=== PATIENT | male | born 1980 | race Two or more races ===

== ENCOUNTER 2019-07-26 04:04 | Emergency (ER) | payer OTHER ==
[~2019-07-26] VITALS: Ht 177.8 cm; Wt 106.6 kg
[2019-07-26 04:17] VITALS: BP 176/127
[2019-07-26] MEDS ORDERED: cloNIDine HCL 0.1 MG TAB PO ONE (04:30)
== END 2019-07-26 04:44 | disposition home or self-care (01) ==
LOC: ER 04:09
DX: I10 Essential (primary) hypertension (principal); R51 Headache; Z76.0 Encounter for issue of repeat prescription

== ENCOUNTER 2024-08-17 21:06 | Inpatient (IN) | payer MEDICAID, OTHER ==
[~2024-08-17] VITALS: Ht 406.4 cm; Wt 110.0 kg
--- NOTE | 2024-08-17 21:33 | ED.PDOC ---
SOB-HPI HPI Comments 44 year old male came to ER due to shortness of breath. Patient has history of methamphetamines abuse and hypertension. Has poor compliance to his hypertensive medications. For the past week he has been having dry non productive cough with shortness of breath and chest tightness, progressively worsening. Upon arrival, he was saturating at 80% on room air and has a blood pressure of 239/170 mmHg Chief Complaint: Shortness Of Breath Time Seen by MD: 21:32 Reviewed notes: Nurses Notes Information Source: Patient Mode of Arrival: Ambulatory Severity: Moderate Timing: Days Duration: Since onset Context: At Rest, With Light Exertion PE Risk Factors: None Prehospital treatment: Oxygen Modifying Factors: Nothing Associated Signs and Symptoms: Cough, Chest Pain Quality: Aching, Tightness Radiation: No Radiation Location: Chest (R), Chest (L) If cough with SOB: Non-Productive Past Medical History PAST MEDICAL HISTORY: HTN Surgical History: Denies all surgeries Family History Family History: Unknown Social History Smoker: Non-Smoker Alcohol: Denies ETOH Use Drugs: Methamphetamine Lives In: Home Constitutional: denies: chills, diaphoresis, fatigue, fever, malaise, sweats, weakness, others EENTM: denies: blurred vision, double vision, ear bleeding, ear discharge, ear drainage, ear pain, ear ringing, eye pain, eye redness, hearing loss, mouth pain, mouth swelling, nasal discharge, nose bleeding, nose congestion, nose pain, photophobia, tearing, throat pain, throat swelling, voice changes, others Respiratory: reports: cough, SOB at rest, shortness of breath, SOB with excertion; denies: hemoptysis, orthopnea, stridor, wheezing, others Cardiovascular: reports: chest pain; denies: dizzy spells, diaphoresis, Dyspnea on exertion, edema, irregular heart beat, left arm pain, lightheadedness, palpitations, PND, syncope, others Gastrointestinal: denies: abdomen distended, abdominal pain, blood streaked bowels, constipated, diarrhea, dysphagia, difficulty swallowing, hematemesis, melena, nausea, poor appetite, poor fluid intake, rectal bleeding, rectal pain, vomiting, others Genitourinary: denies: burning, dysuria, flank pain, frequency, hematuria, incontinence, penile discharge, penile sore, pain, testicle pain, testicle swelling, urgency, others Neurological: denies: dizziness, fainting, headache, left sided numbness, left sided weakness, numbness, paresthesia, pre-existing deficit, right sided numbness, right sided weakness, seizure, speech problems, tingling, tremors, weakness, others Musculoskeletal: denies: back pain, gout, joint pain, joint swelling, muscle pain, muscle stiffness, neck pain, others Integumetry: denies: bruises, change in color, change in hair/nails, dryness, laceration, lesions, lumps, rash, wounds, others Allergic/Immunocompromised: denies: Difficulty Healing, Frequent Infections, Hives, Itching, others Hematologic/Lymphatic: denies: anemia, blood clots, easy bleeding, easy bruising, swollen glands, others Endocrine: denies: excessive hunger, excessive sweating, excessive thirst, excessive urination, flushing, intolerance to cold, intolerance to heat, unexplained weight gain, unexplained weight loss, others Psychiatric: denies: anxiety, bipolar disorder, depression, hopeless, panic disorder, schizophrenia, sleepless, suicidal, others Physical Exam Exam Comments BP very elevated General Appearance: Moderate Distress, Normal HEENT: Normal ENT Inspection, Pharynx Normal, TMs Normal Neck: Full Range of Motion, Non-Tender, Normal, Normal Inspection Respiratory: Decreased Breath Sounds, Respiratory Distress Cardiovascular: No Edema, No JVD, No Murmur, No Gallop, Normal Peripheral Pulses, Regular Rate/Rhythm Breast Exam: Deferred Gastrointestinal: No Organomegaly, Non Tender, No Pulsatile Mass, Normal Bowel Sounds, Soft Genitalia: Deferred Pelvic: Deferred Rectal: Deferred Extremities: No calf tenderness, Normal capillary refill, Normal inspection, Normal range of motion, Non-tender, No pedal edema Musculoskeletal : Apperance: Normal Neurologic: Alert, briquetter operator II-XII nml as Tested, No Motor Deficits, Normal Affect, Normal Mood, No Sensory Deficits Cerebellar Function: Normal Reflexes: Normal Skin: Dry, Normal Color, Warm Lymphatic: No Adenopathy EKG EKG : Pulse Rate (adult): 108 Hypertrophy: LAE Comments sinus tachycardia, no STEMI Was a procedure done? Was a procedure done?: No Differential Dx Differential Diagnosis: Asthma, Bronchitis, Pneumonia, Respiratory Distress, URI X-Ray, Labs, Meds, VS Vital Signs Date Time Temp Pulse Resp B/P (MAP) Pulse Ox O2 Delivery O2 Flow Rate FiO2 08/17/24 22:59 102 20 199/129 (152) 94 08/17/24 22:06 219/147 08/17/24 21:54 112 20 219/147 (171) 96 08/17/24 21:54 112 20 96 Nasal Cannula* 4 36 08/17/24 21:42 19 95 Nasal Cannula* 4 36 08/17/24 21:17 108 08/17/24 21:11 99.2 117 22 239/170 (193) 82 08/17/24 21:11 22 82 Room Air* 0 21 Lab Test 08/17/24 22:12 08/17/24 21:26 Range/Units Troponin I High Sensitivity Pending 139 *H </=54 ng/L White Blood Count 16.1 H 4.4-10.8 10^3/uL Red Blood Count 5.11 4.5-5.90 10^6/uL Hemoglobin 13.9 13.5-17.5 g/dL Hematocrit 41.4 41.0-53.0 % Mean Corpuscular Volume 81.0 80.0-100.0 fL Mean Corpuscular Hemoglobin 27.2 L 28.0-32.0 pg Mean Corpuscular Hemoglobin Concent 33.5 32.0-36.0 g/dL Red Cell Distribution Width 16.1 H 11.8-14.3 % Platelet Count 366 140-450 10^3/uL Mean Platelet Volume 7.1 6.9-10.8 fL Neutrophils (%) (Auto) 88.1 H 37.0-80.0 % Lymphocytes (%) (Auto) 6.2 L 10.0-50.0 % Monocytes (%) (Auto) 4.8 0.0-12.0 % Eosinophils (%) (Auto) 0.6 0.0-7.0 % Basophils (%) (Auto) 0.3 0.0-2.0 % Neutrophils # (Auto) 14.2 H 1.6-8.6 10 ^3/uL Lymphocytes # (Auto) 1.0 0.4-5.4 10 ^3/uL Monocytes # (Auto) 0.8 0-1.3 10 ^3/uL Eosinophils # (Auto) 0.1 0-0.8 10 ^3/uL Basophils # (Auto) 0.1 0-0.2 10 ^3/uL Nucleated Red Blood Cells 0.0 % Sodium Level 139 136-145 mmol/L Potassium Level 3.0 L 3.5-5.1 mmol/L Chloride Level 106 98-107 mmol/L Carbon Dioxide Level 22 20-31 mmol/L Anion Gap 11 5-15 Blood Urea Nitrogen 22 9-23 mg/dL Creatinine 2.88 H 0.700-1.30 mg/dL Glomerular Filtration Rate Calc 27 >90 mL/min BUN/Creatinine Ratio 7.6 L 10.0-20.0 Serum Glucose 115 H 74-106 mg/dL Lactic Acid Level 1.2 0.4-2.0 mmol/L Calcium Level 9.4 8.7-10.4 mg/dL Magnesium Level 2.0 1.6-2.6 mg/dL Total Bilirubin 1.1 H 0.2-1.0 mg/dL Aspartate Amino Transferase (AST) 30 13-40 U/L Alanine Aminotransferase (ALT) 46 H 7-40 U/L Alkaline Phosphatase 106 46-116 U/L B-Type Natriuretic Peptide 343.81 0-100 pg/mL Total Protein 7.6 5.7-8.2 g/dL Albumin 4.4 3.2-4.8 g/dL Current Medications Medications (Trade) Dose Ordered Sig/Gomez Route Start Time Stop Time Status Last Admin Albuterol (Ventolin Medneb) 5 mg ONCE ONCE N 08/17/24 21:30 08/17/24 21:31 DC 08/17/24 21:42 Ipratropium [place] (Atrovent Medneb) 1 mg ONCE ONCE N 08/17/24 21:30 08/17/24 21:31 DC 08/17/24 21:42 Hydralazine HCl (Apresoline Tablet) 50 mg ONCE ONCE PO 08/17/24 22:00 08/17/24 22:01 DC 08/17/24 22:06 Time of 1ST Reevaluation: 21:29 Reevaluation 1ST: Unchanged Time of 2ND Reevaluation: 22:00 Reevaluation 2ND: Unchanged Patient Education/Counseling: Diagnosis, Treatment Family Education/Counseling: No Family Present Sepsis Sepsis Reasesment Focused Exam Sepsis focused exam: time: (2199) Departure 1 Departure Time of Disposition: 23:02 Impression: Primary Impression: RLL pneumonia Additional Impression: Respiratory failure with hypoxia Disposition: ADMITTED INPATIENT Condition: Guarded Critical Care Note Critical Care Time?: Yes (45 min-critical care time only) Stability Stability form required: No Heart Score Heart Score: Heart Score Response (Comments) Value History Moderate Suspicious 1 EKG Normal 0 Age <45 0 Risk Factors 1 or 2 risk factors 1 Troponin Normal limit 0 Total 2 I personally scribed for DEYA MAN MD ([email or web address]) on 08/17/24 at 21:33. E lectronically submitted by Selvin Hooper ([email or web address]). DEYA MAN MD Aug 17, 2024 21:33
[2024-08-17 21:41] VITALS: O2SAT 95
[2024-08-17] MEDS: IPRATROPIUM BROM 0.5 MG/2.5ML INH SOL HHN ONE (21:42)
[2024-08-17] MEDS: ALBUTEROL SULF 2.5 MG/0.5ML(0.5%) NEB SOLN HHN ONE (21:42)
[2024-08-17 21:54] VITALS: PULSE 112; RESP 20; O2SAT 96
[2024-08-17 21:54] LABS: Basophils # (auto) 0.1 10 ^3/uL (0-0.2); Basophils % (auto) 0.3 % (0.0-2.0); Eosinophils # (auto) 0.1 10 ^3/uL (0-0.8); Eosinophils % (auto) 0.6 % (0.0-7.0); Hematocrit 41.4 % (41.0-53.0); Hemoglobin 13.9 g/dL (13.5-17.5); Lymphocytes % (auto) 6.2 % (10.0-50.0); Mean Corpuscular Hemoglobin 27.2 pg (28.0-32.0); Mean Corpuscular Hgb Conc. 33.5 g/dL (32.0-36.0); Monocytes # (auto) 0.8 10 ^3/uL (0-1.3); Monocytes % (auto) 4.8 % (0.0-12.0); Neutrophils # (auto) 14.2 10 ^3/uL (1.6-8.6); Neutrophils % (auto) 88.1 % (37.0-80.0); Platelet Count (auto) 366 10^3/uL (140-450); Red Blood Cells 5.11 10^6/uL (4.5-5.90); Red Cell Distribution Width 16.1 % (11.8-14.3); White Blood Cell 16.1 10^3/uL (4.4-10.8)
[2024-08-17 22:04] LABS: Alanine Aminotransferase 46 U/L (7-40); Albumin 4.4 g/dL (3.2-4.8); Alkaline Phosphatase 106 U/L (46-116); Anion Gap 11 (5-15); Aspartate Aminotransferase 30 U/L (13-40); BUN/Creatinine Ratio 7.6 (10.0-20.0); Bilirubin, Total 1.1 mg/dL (0.2-1.0); Blood Urea Nitrogen 22 mg/dL (9-23); Calcium 9.4 mg/dL (8.7-10.4); Carbon Dioxide 22 mmol/L (20-31); Chloride 106 mmol/L (98-107); Glucose 115 mg/dL (74-106); Sodium 139 mmol/L (136-145); Total Protein 7.6 g/dL (5.7-8.2)
[2024-08-17] MEDS: hydrALAZINE HCL 25 MG TAB PO ONE (22:06)
[2024-08-17 22:45] VITALS: PULSE 99; RESP 18; O2SAT 96
--- NOTE | 2024-08-17 22:56 | DVH ---
CHEST RADIOGRAPH Indication: sob Technique: Single frontal view of the chest was obtained COMPARISON: None FINDINGS: Lines and Tubes: None Lungs: Right lower lobe consolidation suspicious for pneumonia. Pleura: No effusion. No pneumothorax. Cardiomediastinal contours: Mild cardiomegaly Bones: Unremarkable IMPRESSION: 1. Right lower lobe pneumonia.
[2024-08-17] MEDS: cefTRIAXone 1GM/50ML D5W 50 ML IV ONE (23:00)
[2024-08-17] MEDS: AZITHROMYCIN 500MG/ 250ML 250 ML IV ONE (23:00)
[2024-08-17 23:43] LABS: Urine Bacteria MOD /hpf (None Seen); Urine Blood 2+ /uL (Negative); Urine Clarity Clear (Clear); Urine Color Light-Yellow (Yellow); Urine Protein, UAD 2+ (Negative); Urine Specific Gravity 1.012 (1.001-1.035); Urine Sperm PRESENT /hpf (None Seen); Urine Urobilinogen Normal (Negative); Urine WBC 2 /hpf (0 - 3)
[2024-08-17] MEDS ORDERED: cloNIDine HCL 0.1 MG TAB PO PRN (23:45)
[2024-08-17] MEDS ORDERED: ALBUTEROL SULF 2.5 MG/0.5ML(0.5%) NEB SOLN NEB PRN (23:45)
[2024-08-17] MEDS ORDERED: hydrALAZINE HCL 20 MG/ML VL IV PRN (23:45)
[2024-08-17] MEDS ORDERED: DOCUSATE SOD 100 MG CAP PO PRN (23:45)
[2024-08-17] MEDS: ASPirin 81 mg TAB PO ONE (23:45)
[2024-08-17] MEDS: FUROSEMIDE 40 MG/4 ML VIAL IV ONE (23:45)
[2024-08-17] MEDS ORDERED: NITROGLYCERIN 0.4 MG SL TAB SL PRN (23:45)
[2024-08-17] MEDS ORDERED: HYDROcodone-ACET 5/325MG TAB PO PRN (23:45)
[2024-08-17 23:50] LABS: Amphetamine Screen, Urine Pos (NEGATIVE); Barbiturate Scree,Urine Neg (NEGATIVE); Benzodiazephine Screen, Urine Neg (NEGATIVE); Cannabinoid Screen, Urine Pos (NEGATIVE); Cocaine Screen, Urine Neg (NEGATIVE); Opiate Scree,Urine Neg (NEGATIVE); Phencyclidine Screen, Urine Pos (NEGATIVE)
[2024-08-18] VITALS (12 sets, daily range): BP systolic 143–199; BP diastolic 93–129; PULSE 68–92; RESP 18–26; TEMP 97.7–98.3; O2SAT 83–99
--- NOTE | 2024-08-18 | DVHHP2 ---
History of Present Illness Reason for Visit: Respiratory failure with hypoxia History of Present Illness The patient is a 44-year-old male with past medical history of hypertension presented to [facility] ED with complaint of shortness of breaths. Patient reports symptoms progressively get worse with productive cough, chest tightness, hypoxia, O2 saturation at 80% on room air, elevated blood pressure, getting worse that prompted this visit. Patient was seen and evaluated in the ED, laboratory data shows WBC 16.1, platelets 366, sodium 139, potassium 3.0, BUN 22, creatinine 2.88, glucose 115, AST 30, ALT 46, troponin 139, BNP 343.81, blood pressure 239/170 trending down to 168/107, heart rate 102, temperature 99.2 F, O2 saturation 91% on oxygen. Chest x-ray revealing right lower lobe pneumonia. Patient was started on IV antibiotic regimen azithromycin, please see medication orders section in the computer. On my assessment, patient denied chest pain, no headache, no dizziness, no diaphoresis, currently on oxygen, no nausea, no vomiting, no fever, no chills. Patient was admitted for further evaluation and medical management. Past Medical History HTN Past Surgical History Denies all surgeries Family History Reviewed, noncontributory to the management of this case. Past Social History The patient lives at home, denies smoking, alcohol or illicit drugs abuse. Review of Systems Constitutional: Yes: Weakness; No: Fever, Chills, Sweats, Malaise, Other Eyes: No: Pain, Vision change, Conjunctivae inflammation, Eyelid inflammation, Other, Redness ENT: No: Ear pain, Ear discharge, Nose pain, Nose discharge, Nose congestion, Mouth pain, Mouth swelling, Throat pain, Throat swelling, Other Respiratory: Cough, Shortness of breath, SOB with excertion, Other (SOB at rest); No: Dry, Wheezing, Hemoptysis, Pleuritic Pain, Sputum, Wheezing Cardiovascular: No: Chest Pain, Palpitations, Orthopnea, Paroxysmal Noc. Dyspnea, Edema, Lt Headedness, Other Gastrointestinal: No: Nausea, Vomiting, Abdominal Pain, Diarrhea, Constipation, Melena, Hematochezia, Other Genitourinary: No Dysuria, No Frequency, No Incontinence, No Hematuria, No Retention, No Other Musculoskeletal: No: other, neck pain, shoulder pain, arm pain, back pain, hand pain, leg pain, foot pain Skin: No: Rash, Lesions, Jaundice, Bruising, Other Neurological: No: Weakness, Numbness, Incoordination, Change in speech, Confusion, Seizures, Other Allergies: Coded Allergies: NO KNOWN ALLERGIES (Unverified , 07/26/19) Medications Current Medications Medications Dose Ordered Sig/Gomez Route Start Time Stop Time Status Last Admin Dose Admin Metoprolol Tartrate 50 mg BID PO 08/18/24 10:00 UNV Amlodipine Besylate 10 mg DAILY PO 08/18/24 10:00 UNV Hydralazine HCl 10 mg Q6HP PRN IV 08/17/24 23:45 UNV Clonidine HCl 0.2 mg Q6HP PRN PO 08/17/24 23:45 UNV Albuterol 2.5 mg Q4HPRN PRN NEB 08/17/24 23:45 UNV Azithromycin 250 ml @ 125 mls/hr DAILY IV 08/18/24 10:00 UNV Ipratropium [place] 0.5 mg Q4HPRN PRN NEB 08/17/24 23:45 UNV Furosemide 40 mg DAILY IV 08/18/24 10:00 UNV Ceftriaxone Sodium 50 ml @ 100 mls/hr DAILY@09 IV 08/18/24 09:00 UNV Aspirin 81 mg DAILY PO 08/18/24 10:00 UNV Sodium Chloride 10 ml Q8HR IV 08/18/24 06:00 UNV Acetaminophen/ Hydrocodone Bitart 1 tab Q4HP PRN PO 08/17/24 23:45 UNV Ondansetron HCl 4 mg Q4HP PRN IV 08/17/24 23:45 UNV Docusate Sodium 100 mg BIDPRN PRN PO 08/17/24 23:45 UNV Acetaminophen 650 mg Q6HP PRN PO 08/17/24 23:45 UNV Nitroglycerin 0.4 mg Q5MINP PRN SL 08/17/24 23:45 UNV Morphine Sulfate 2 mg Q30M PRN IV 08/17/24 23:45 UNV Exam Vital Signs Vital Signs Date Time Temp Pulse Resp B/P (MAP) Pulse Ox O2 Delivery O2 Flow Rate FiO2 08/17/24 23:19 108 08/17/24 22:59 20 199/129 (152) 94 08/17/24 21:54 Nasal Cannula* 4 36 08/17/24 21:11 99.2 General Appearance: Alert, Oriented X3, Cooperative, No acute distress HEENT: Atraumatic, PERRLA, EOMI, Mucous membr. moist/pink Respiratory: Normal air movement, Other (Diminished breath sounds) Cardiovascular: Regular rate, Normal S1, Normal S2, No murmurs Abdominal: Normal bowel sounds, Soft, No tenderness, No hepatospenomegaly, No masses Extremities: No clubbing, No cyanosis, No edema, Normal pulses, No tenderness/swelling Skin: No rashes, No breakdown, No significant lesion Neuro: Normal gait, Normal speech, Strength at 5/5 X4 ext, Normal tone, Sensation intact, Cranial nerves 3-12 NL, Reflexes 2+ Psych/Mental Status: Mental status NL, Mood NL Labs/Xrays Labs Test 08/17/24 22:12 08/17/24 21:39 08/17/24 21:26 Range/Units Troponin I High Sensitivity 128 *H </=54 ng/L Urine Color Light-yellow Yellow Urine Clarity Clear Clear Urine pH 6.0 5.0-9.0 Urine Specific [place] 1.012 1.001-1.035 Urine Protein 2+ H Negative Urine Ketones Negative Negative Urine Blood 2+ H Negative /uL Urine Nitrite Negative Negative Urine Bilirubin Negative Negative Urine Urobilinogen Normal Negative mg/dL Urine Leukocyte Esterase Negative Negative /uL Urine RBC 72 0 - 3 /hpf Urine WBC 2 0 - 3 /hpf Urine Squamous Epithelial Cells None seen <5 /hpf Urine Bacteria Mod H None Seen /hpf Urine Sperm Present None Seen /hpf Urine Glucose Normal Normal mg/dL Urine Opiates Screen Neg NEGATIVE Urine Fentanyl Screen Neg NEGATIVE Urine Barbiturates Screen Neg NEGATIVE Urine Phencyclidine Screen Pos NEGATIVE Urine Amphetamines Screen Pos NEGATIVE Urine Benzodiazepines Screen Neg NEGATIVE Urine Cocaine Screen Neg NEGATIVE Urine Cannabinoids Screen Pos NEGATIVE White Blood Count 16.1 H 4.4-10.8 10^3/uL Red Blood Count 5.11 4.5-5.90 10^6/uL Hemoglobin 13.9 13.5-17.5 g/dL Hematocrit 41.4 41.0-53.0 % Mean Corpuscular Volume 81.0 80.0-100.0 fL Mean Corpuscular Hemoglobin 27.2 L 28.0-32.0 pg Mean Corpuscular Hemoglobin Concent 33.5 32.0-36.0 g/dL Red Cell Distribution Width 16.1 H 11.8-14.3 % Platelet Count 366 140-450 10^3/uL Mean Platelet Volume 7.1 6.9-10.8 fL Neutrophils (%) (Auto) 88.1 H 37.0-80.0 % Lymphocytes (%) (Auto) 6.2 L 10.0-50.0 % Monocytes (%) (Auto) 4.8 0.0-12.0 % Eosinophils (%) (Auto) 0.6 0.0-7.0 % Basophils (%) (Auto) 0.3 0.0-2.0 % Neutrophils # (Auto) 14.2 H 1.6-8.6 10 ^3/uL Lymphocytes # (Auto) 1.0 0.4-5.4 10 ^3/uL Monocytes # (Auto) 0.8 0-1.3 10 ^3/uL Eosinophils # (Auto) 0.1 0-0.8 10 ^3/uL Basophils # (Auto) 0.1 0-0.2 10 ^3/uL Nucleated Red Blood Cells 0.0 % Sodium Level 139 136-145 mmol/L Potassium Level 3.0 L 3.5-5.1 mmol/L Chloride Level 106 98-107 mmol/L Carbon Dioxide Level 22 20-31 mmol/L Anion Gap 11 5-15 Blood Urea Nitrogen 22 9-23 mg/dL Creatinine 2.88 H 0.700-1.30 mg/dL Glomerular Filtration Rate Calc 27 >90 mL/min BUN/Creatinine Ratio 7.6 L 10.0-20.0 Serum Glucose 115 H 74-106 mg/dL Lactic Acid Level 1.2 0.4-2.0 mmol/L Calcium Level 9.4 8.7-10.4 mg/dL Magnesium Level 2.0 1.6-2.6 mg/dL Total Bilirubin 1.1 H 0.2-1.0 mg/dL Aspartate Amino Transferase (AST) 30 13-40 U/L Alanine Aminotransferase (ALT) 46 H 7-40 U/L Alkaline Phosphatase 106 46-116 U/L B-Type Natriuretic Peptide 343.81 0-100 pg/mL Total Protein 7.6 5.7-8.2 g/dL Albumin 4.4 3.2-4.8 g/dL PATIENT: DON BENAVIDES ACCT: [id number] UNIT: [id number] : 1980 LOC: ER ROOM / BED: / AGE / SEX: 44 / M ADM STATUS: REG ER SERVICE 16 ORDERING PHYSICIAN: DEYA MAN MD PROCEDURE(s): CXRP - CHEST PORTABLE REASON: sob ORDER NUMBER(s): [id number], ACCESSION NUMBER(s): [id number] CHEST RADIOGRAPH Indication: sob Technique: Single frontal view of the chest was obtained COMPARISON: None FINDINGS: Lines and Tubes: None Lungs: Right lower lobe consolidation suspicious for pneumonia. Pleura: No effusion. No pneumothorax. Cardiomediastinal contours: Mild cardiomegaly Bones: Unremarkable IMPRESSION: 1. Right lower lobe pneumonia. Assessment/Plan Assessment/Plan Acute respiratory distress with hypoxia Hypertensive urgency Pneumonia, unspecified organisms Acute renal injury Hypokalemia Elevated troponin Leukocytosis, unspecified Generalized weakness Acute exacerbation of congestive heart failure Plan 1. Admit to telemetry unit 2. Breathing treatment 3. Pain control management 4. IV antibiotic management 5. Management of fluids and electrolytes 6. Consultation for Cardiology/Nephrology 7. Diagnostic test chest x-ray 8. DVT prophylaxis-on aspirin 9. Repeat labs CBC, CMP in a.m. 10. Home medication reviewed and reconciled 11. Continue with current medical management 12. Treatment plan discussed with patient and RN. Patient verbalized brendai karin. Plan discussed with: Patient, Other (RN) My Orders Orders - JW HERRON DNP Procedure Category Date Status Time Metoprolol Tartrate PHA 08/18/24 Logged Tablet (Lopressor Ta 10:00 Amlodipine Tablet PHA 08/18/24 Logged (Norvasc Tablet) 10:00 Amlodipine Tablet PHA 08/17/24 Logged (Norvasc Tablet) 23:45 Hydralazine Injection PHA 08/17/24 Logged (Apresoline Inject 23:45 Clonidine Hcl Tablet PHA 08/17/24 Logged (Catapres Tablet) 23:45 Potassium Er Tablet PHA 08/17/24 Logged (Klor-Con Tablet) 23:45 Albuterol Medneb PHA 08/17/24 Logged (Ventolin Medneb) 23:45 Azithromycin 500mg/ PHA 08/18/24 Logged 250ml (Zithromax 50 10:00 Ipratropium Medneb PHA 08/17/24 Logged (Atrovent Medneb) 23:45 Furosemide Injection PHA 08/17/24 Logged (Lasix Injection) 23:45 Furosemide Injection PHA 08/18/24 Logged (Lasix Injection) 10:00 * Cardiology Consult CONS 08/17/24 Transmitted 23:40 Ceftriaxone 1gm/50ml PHA 08/18/24 Logged D5w (Rocephin) 09:00 Aspirin Tablet PHA 08/18/24 Logged 10:00 Aspirin Tablet PHA 08/17/24 Transmitted 23:45 Troponin-I Hs LAB 08/18/24 Transmitted 04:00 Troponin-I Hs LAB 08/18/24 Transmitted 10:00 Admit ADMIT 08/17/24 Transmitted 23:40 Allergies LOYDA 08/17/24 In Process 23:40 Code Status CODE 08/17/24 Transmitted 23:40 Sodium Chloride Lock PHA 08/18/24 Transmitted (Saline Lock Ns) 06:00 Oxygen Per Hour RT 08/17/24 Transmitted 23:40 Hydrocodone-Acet PHA 08/17/24 Logged 5/325mg Tab ([place] 23:45 Ondansetron Hcl PHA 08/17/24 Logged (Zofran) 23:45 Docusate Sodium PHA 08/17/24 Logged Capsule (Colace 23:45 Complete Blood Count LAB 08/18/24 Verified 04:00 Comprehensive LAB 08/18/24 Verified Metabolic Panel 04:00 Cardiac DIET 08/18/24 Transmitted Diet-2gna,Lofat,Lochol Breakfast Echo 2d Mode Cardiac US 08/17/24 Logged DOP 23:40 Condition: Serious LOYDA 08/17/24 In Process 23:40 Acetaminophen Tablet PHA 08/17/24 Logged (Tylenol Tablet) 23:45 Bedrest With Bathroom LOYDA 08/17/24 In Process Privileg 23:40 Sequential LOYDA 08/17/24 In Process Compression Device Nitroglycerin PHA 08/17/24 Logged Sublingual (Ntrostat 23:45 Morphine Sulfate PHA 08/17/24 Logged Injection 23:45 Stat Ekg For Chest LOYDA 08/17/24 In Process Pain 23:40 Notify Of Changes LOYDA 08/17/24 In Process From Base 23:40 [employer] Engagement Planning Operator For LOYDA 08/17/24 In Process 24 Hours 23:40 Emergency Dysrhythmia [facility] 08/17/24 In Process Protocol 23:40 Rhythm Strips Once [facility] 08/17/24 In Process Every Shift 23:40 Oxygen By Nasal RT 08/17/24 Transmitted Cannula 23:40 Problem List: (1) Respiratory failure with hypoxia (2) Hypertensive urgency (3) Hypokalemia (4) Acute renal injury (5) Generalized weakness (6) Pneumonia, unspecified organism (7) Leukocytosis, unspecified (8) CHF exacerbation (9) Elevated troponin (10) Acute exacerbation of congestive heart failure Date of Service: Aug 17, 2024 Billing Provider: JW HERRON DNP Common Visit Codes: [id number] INP/OBS CARE (HIGH) JW HERRON DNP Aug 18, 2024 00:00
[2024-08-18] MEDS: POTASSIUM CHL 20 Meq TABLET PO ONE (00:39)
[2024-08-18] MEDS: amLODIPine BESYLATE 5 MG TAB PO ONE (00:43)
[2024-08-18] MEDS: ONDANSETRON HCL 4 MG/2 ML VIAL IV PRN (00:44)
[2024-08-18] MEDS: MORPHINE SULFATE INJ 2 MG/ml SYRG IV PRN (00:46)
[2024-08-18] MEDS: hydrALAZINE HCL 20 MG/ML VL IV ONE (01:48)
[2024-08-18 05:44] LABS: Basophils # (auto) 0.1 10 ^3/uL (0-0.2); Basophils % (auto) 0.5 % (0.0-2.0); Eosinophils # (auto) 0 10 ^3/uL (0-0.8); Eosinophils % (auto) 0.3 % (0.0-7.0); Hematocrit 39.6 % (41.0-53.0); Hemoglobin 13.5 g/dL (13.5-17.5); Lymphocytes # (auto) 1.5 10 ^3/uL (0.4-5.4); Mean Corpuscular Hemoglobin 27.2 pg (28.0-32.0); Mean Corpuscular Hgb Conc. 34.1 g/dL (32.0-36.0); Mean Corpuscular Volume 79.9 fL (80.0-100.0); Monocytes # (auto) 0.8 10 ^3/uL (0-1.3); Monocytes % (auto) 5.9 % (0.0-12.0); Neutrophils # (auto) 11.2 10 ^3/uL (1.6-8.6); Neutrophils % (auto) 82.3 % (37.0-80.0); Platelet Count (auto) 323 10^3/uL (140-450); Red Blood Cells 4.96 10^6/uL (4.5-5.90); Red Cell Distribution Width 16.5 % (11.8-14.3); White Blood Cell 13.6 10^3/uL (4.4-10.8)
[2024-08-18] MEDS: SODIUM CHLOR 0.9% PF (SALINE LOCK) 10ML VIAL/SYR IV SCH (06:00)
[2024-08-18 06:08] LABS: Alanine Aminotransferase 44 U/L (7-40); Albumin 3.8 g/dL (3.2-4.8); Alkaline Phosphatase 100 U/L (46-116); Anion Gap 12 (5-15); Aspartate Aminotransferase 22 U/L (13-40); BUN/Creatinine Ratio 9.3 (10.0-20.0); Blood Urea Nitrogen 29 mg/dL (9-23); Carbon Dioxide 24 mmol/L (20-31); Chloride 104 mmol/L (98-107); Glucose 99 mg/dL (74-106); Potassium 3.4 mmol/L (3.5-5.1); Sodium 140 mmol/L (136-145)
[2024-08-18 06:09] LABS: Total Protein 6.6 g/dL (5.7-8.2)
[2024-08-18] MEDS ORDERED: LORazepam 2MG/ML-1ML VIAL IV PRN (08:45)
[2024-08-18 09:38] LABS: Blood Alcohol < 3.0 mg/dL (<10); Triglycerides 103 mg/dL (< 150)
[2024-08-18 09:39] LABS: Cholesterol 227 mg/dL (< 200); LDL Cholesterol 167 mg/dL (< 100)
[2024-08-18 09:40] LABS: HDL Cholesterol 45 mg/dL (40-59); Phosphorus 3.7 mg/dL (2.4-5.1)
[2024-08-18 09:43] LABS: INR 1.1 (0.9-1.15); Partial Thromboplastin Time 31.2 SEC (24.5-34.5); Prothrombin Time 11.6 sec (9.3-11.8)
[2024-08-18] MEDS ORDERED: FUROSEMIDE 40 MG/4 ML VIAL IV SCH (10:00)
[2024-08-18] MEDS: METOPROLOL TARTRATE 50 MG TAB PO SCH (10:08)
[2024-08-18] MEDS: ASPirin 81 mg TAB PO SCH (10:08)
[2024-08-18] MEDS: amLODIPine BESYLATE 5 MG TAB PO SCH (10:09)
[2024-08-18] MEDS: ACETAMINOPHEN 325 MG TAB PO PRN (10:09)
[2024-08-18] MEDS: FUROSEMIDE 40 MG/4 ML VIAL IV SCH (10:10)
[2024-08-18 10:19] LABS: COVID19 ANTIGEN SOFIA FIA NEGATIVE (NEGATIVE); Rapid Influenza A Negative (Negative); Rapid Influenza B Negative (Negative)
[2024-08-18] MEDS: NITROGLYCERIN 50MG/250ML 250 ML IV SCH (10:45)
[2024-08-18] MEDS: LEVALBUTEROL HCL 1.25 MG/3 ML NEB NEB SCH (11:35)
[2024-08-18] MEDS: IPRATROPIUM BROM 0.5 MG/2.5ML INH SOL NEB PRN (11:35)
--- NOTE | 2024-08-18 12:17 | DVH ---
EXAM: US Retroperitoneal Complete, Renal CLINICAL INDICATION: renny TECHNIQUE: Real-time complete ultrasound of the retroperitoneum with image documentation. COMPARISON: None FINDINGS: RIGHT KIDNEY: The right renal parenchyma is echogenic. No stones. No hydronephrosis. Right kidney measures 9.7 cm. LEFT KIDNEY: Left kidney measures up to 10.0 cm. The left renal parenchyma is echogenic. No stones . No hydronephrosis. BLADDER: Contracted urinary bladder. OTHER FINDINGS: . . . IMPRESSION: The renal parenchyma is echogenic bilaterally suggesting medical renal disease. HS:Y
[2024-08-18] MEDS: NITROGLYCERIN 50MG/250ML 0 ML IV ONE (12:26)
--- NOTE | 2024-08-18 12:59 | DVHINCON2 ---
Date of service: Aug 18, 2024 Referring Physician Yifan Conway NP Reason for Consultation Acute kidney injury History of Present Illness Mr. Mendoza is a 44-year-old male with known history of diabetes who presented for further evaluation and management of hypertensive crisis. His presenting symp jessy was severe shortness of breath. He was seen in the emergency department awake alert conversant and in no acute distress states that his shortness of breath has improved. His serum creatinine has been notable to be in the three range. Past Medical History Diabetes Hypertension Allergies: Coded Allergies: NO KNOWN ALLERGIES (Unverified , 07/26/19) Current Medications Current Medications Medications (Trade) Dose Ordered Sig/Gomez Route PRN Reason Start Time Stop Time Status Last Admin Metoprolol Tartrate (Lopressor Tablet) 50 mg BID PO 08/18/24 10:00 08/18/24 10:08 Amlodipine Besylate (Norvasc Tablet) 10 mg DAILY PO 08/18/24 10:00 08/18/24 10:09 Hydralazine HCl (Apresoline Injection) 10 mg Q6HP PRN IV SBP>150 08/17/24 23:45 Clonidine HCl (Catapres Tablet) 0.2 mg Q6HP PRN PO SBP>160 08/17/24 23:45 Albuterol (Ventolin Medneb) 2.5 mg Q4HPRN PRN NEB SHORTNESS OF BREATH 08/17/24 23:45 08/18/24 08:44 DC Azithromycin 250 ml @ 125 mls/hr DAILY@2200 IV 08/18/24 22:00 Ipratropium [place] (Atrovent Medneb) 0.5 mg Q4HPRN PRN NEB SHORTNESS OF BREATH 08/17/24 23:45 08/18/24 11:35 Furosemide (Lasix Injection) 40 mg DAILY IV 08/18/24 10:00 08/18/24 08:44 DC Ceftriaxone Sodium 50 ml @ 100 mls/hr DAILY@2100 IV 08/18/24 21:00 Aspirin 81 mg DAILY PO 08/18/24 10:00 08/18/24 10:08 Sodium Chloride (Saline Lock Ns) 10 ml Q8HR IV 08/18/24 06:00 08/18/24 06:00 Acetaminophen/ Hydrocodone Bitart ([place] 5/325MG Tab) 1 tab Q4HP PRN PO MODERATE PAIN (4-6 PAIN SCALE) 08/17/24 23:45 Ondansetron HCl (Zofran) 4 mg Q4HP PRN IV NAUSEA / VOMITING 08/17/24 23:45 08/18/24 00:44 Docusate Sodium (Colace Capsule) 100 mg BIDPRN PRN PO FOR CONSTIPATION 08/17/24 23:45 Acetaminophen (Tylenol Tablet) 650 mg Q6HP PRN PO PAIN SCALE 1-3 OR TEMP>100.4 08/17/24 23:45 08/18/24 10:09 Nitroglycerin (Ntrostat Sublingual) 0.4 mg Q5MINP PRN SL FOR CHEST PAIN 08/17/24 23:45 Morphine Sulfate 2 mg Q30M PRN IV FOR CHEST PAIN 08/17/24 23:45 08/18/24 00:46 Furosemide (Lasix Injection) 40 mg BIDD IV 08/18/24 09:21 08/18/24 10:10 Lorazepam (Ativan Inj) 0.5 mg Q6HP PRN IV ANXIETY 08/18/24 08:45 Levalbuterol HCl (Xopenex Medneb) 0.625 mg Q6HR NEB 08/18/24 12:00 08/18/24 11:35 Nitroglycerin 250 ml @ 1.5 mls/hr Q24H IV 08/18/24 10:45 Review of Systems Denies gross hematuria, dysuria, tea or Coca-Cola colored urine Denies excessive use of recent NSAIDs, foamy urine, recent IV contrast studies Denies fever, chills, nausea, vomiting, diarrhea Denies unintentional weight loss, night sweats Denies focal weakness, numbness + shortness of breath H&P Exam Vital Signs/I&O Vital Sign Date Time Temp Pulse Resp B/P (MAP) Pulse Ox O2 Delivery O2 Flow Rate FiO2 08/18/24 12:30 72 26 137/95 (109) 96 08/18/24 08:00 Nasal Cannula* 3 32 08/18/24 08:00 98.1 98.1 Physical Exam Gen: nad heent: nc/at, mmm lungs: Occasional rhonchi cvs: no rub abd: soft, bowel sounds audible ext: no edema skin: no rash neuro: alert and oriented Labs/Diagnostic Data Labs/Diagnostic Data Laboratory Tests Test 08/18/24 09:18 08/18/24 09:00 08/18/24 05:03 08/18/24 00:19 Range/Units Influenza Type A Antigen Negative Negative Influenza Type B Antigen Negative Negative SARS-CoV-2 Antigen (Rapid) Negative NEGATIVE Prothrombin Time 11.6 9.3-11.8 sec Prothrombin Time INR 1.10 0.9-1.15 Activated Partial Thromboplast Time 31.2 24.5-34.5 SEC Hemoglobin A1c 5.4 <5.7 % A1C Phosphorus Level 3.7 2.4-5.1 mg/dL Magnesium Level 2.0 1.6-2.6 mg/dL Troponin I High Sensitivity 132 *H 146 *H 139 *H </=54 ng/L Triglycerides Level 103 < 150 mg/dL Cholesterol Level 227 H < 200 mg/dL LDL Cholesterol 167 H < 100 mg/dL HDL Cholesterol 45 40-59 mg/dL Thyroid Stimulating Hormone (TSH) 2.68 0.55-4.78 uIU/mL Plasma/Serum Blood Alcohol < 3.0 <10 mg/dL White Blood Count 13.6 H 4.4-10.8 10^3/uL Red Blood Count 4.96 4.5-5.90 10^6/uL Hemoglobin 13.5 13.5-17.5 g/dL Hematocrit 39.6 L 41.0-53.0 % Mean Corpuscular Volume 79.9 L 80.0-100.0 fL Mean Corpuscular Hemoglobin 27.2 L 28.0-32.0 pg Mean Corpuscular Hemoglobin Concent 34.1 32.0-36.0 g/dL Red Cell Distribution Width 16.5 H 11.8-14.3 % Platelet Count 323 140-450 10^3/uL Mean Platelet Volume 7.2 6.9-10.8 fL Neutrophils (%) (Auto) 82.3 H 37.0-80.0 % Lymphocytes (%) (Auto) 11.0 10.0-50.0 % Monocytes (%) (Auto) 5.9 0.0-12.0 % Eosinophils (%) (Auto) 0.3 0.0-7.0 % Basophils (%) (Auto) 0.5 0.0-2.0 % Neutrophils # (Auto) 11.2 H 1.6-8.6 10 ^3/uL Lymphocytes # (Auto) 1.5 0.4-5.4 10 ^3/uL Monocytes # (Auto) 0.8 0-1.3 10 ^3/uL Eosinophils # (Auto) 0 0-0.8 10 ^3/uL Basophils # (Auto) 0.1 0-0.2 10 ^3/uL Nucleated Red Blood Cells 0.0 % Sodium Level 140 136-145 mmol/L Potassium Level 3.4 L 3.5-5.1 mmol/L Chloride Level 104 98-107 mmol/L Carbon Dioxide Level 24 20-31 mmol/L Anion Gap 12 5-15 Blood Urea Nitrogen 29 H 9-23 mg/dL Creatinine 3.13 H 0.700-1.30 mg/dL Glomerular Filtration Rate Calc 24 >90 mL/min BUN/Creatinine Ratio 9.3 L 10.0-20.0 Serum Glucose 99 74-106 mg/dL Calcium Level 9.0 8.7-10.4 mg/dL Total Bilirubin 1.0 0.2-1.0 mg/dL Aspartate Amino Transferase (AST) 22 13-40 U/L Alanine Aminotransferase (ALT) 44 H 7-40 U/L Alkaline Phosphatase 100 46-116 U/L Total Protein 6.6 5.7-8.2 g/dL Albumin 3.8 3.2-4.8 g/dL Test 08/17/24 22:12 08/17/24 21:39 08/17/24 21:26 Range/Units Troponin I High Sensitivity 128 *H 139 *H </=54 ng/L Urine Color Light-yellow Yellow Urine Clarity Clear Clear Urine pH 6.0 5.0-9.0 Urine Specific [place] 1.012 1.001-1.035 Urine Protein 2+ H Negative Urine Ketones Negative Negative Urine Blood 2+ H Negative /uL Urine Nitrite Negative Negative Urine Bilirubin Negative Negative Urine Urobilinogen Normal Negative mg/dL Urine Leukocyte Esterase Negative Negative /uL Urine RBC 72 0 - 3 /hpf Urine WBC 2 0 - 3 /hpf Urine Squamous Epithelial Cells None seen <5 /hpf Urine Bacteria Mod H None Seen /hpf Urine Sperm Present None Seen /hpf Urine Glucose Normal Normal mg/dL Urine Opiates Screen Neg NEGATIVE Urine Fentanyl Screen Neg NEGATIVE Urine Barbiturates Screen Neg NEGATIVE Urine Phencyclidine Screen Pos NEGATIVE Urine Amphetamines Screen Pos NEGATIVE Urine Benzodiazepines Screen Neg NEGATIVE Urine Cocaine Screen Neg NEGATIVE Urine Cannabinoids Screen Pos NEGATIVE White Blood Count 16.1 H 4.4-10.8 10^3/uL Red Blood Count 5.11 4.5-5.90 10^6/uL Hemoglobin 13.9 13.5-17.5 g/dL Hematocrit 41.4 41.0-53.0 % Mean Corpuscular Volume 81.0 80.0-100.0 fL Mean Corpuscular Hemoglobin 27.2 L 28.0-32.0 pg Mean Corpuscular Hemoglobin Concent 33.5 32.0-36.0 g/dL Red Cell Distribution Width 16.1 H 11.8-14.3 % Platelet Count 366 140-450 10^3/uL Mean Platelet Volume 7.1 6.9-10.8 fL Neutrophils (%) (Auto) 88.1 H 37.0-80.0 % Lymphocytes (%) (Auto) 6.2 L 10.0-50.0 % Monocytes (%) (Auto) 4.8 0.0-12.0 % Eosinophils (%) (Auto) 0.6 0.0-7.0 % Basophils (%) (Auto) 0.3 0.0-2.0 % Neutrophils # (Auto) 14.2 H 1.6-8.6 10 ^3/uL Lymphocytes # (Auto) 1.0 0.4-5.4 10 ^3/uL Monocytes # (Auto) 0.8 0-1.3 10 ^3/uL Eosinophils # (Auto) 0.1 0-0.8 10 ^3/uL Basophils # (Auto) 0.1 0-0.2 10 ^3/uL Nucleated Red Blood Cells 0.0 % Sodium Level 139 136-145 mmol/L Potassium Level 3.0 L 3.5-5.1 mmol/L Chloride Level 106 98-107 mmol/L Carbon Dioxide Level 22 20-31 mmol/L Anion Gap 11 5-15 Blood Urea Nitrogen 22 9-23 mg/dL Creatinine 2.88 H 0.700-1.30 mg/dL Glomerular Filtration Rate Calc 27 >90 mL/min BUN/Creatinine Ratio 7.6 L 10.0-20.0 Serum Glucose 115 H 74-106 mg/dL Lactic Acid Level 1.2 0.4-2.0 mmol/L Calcium Level 9.4 8.7-10.4 mg/dL Magnesium Level 2.0 1.6-2.6 mg/dL Total Bilirubin 1.1 H 0.2-1.0 mg/dL Aspartate Amino Transferase (AST) 30 13-40 U/L Alanine Aminotransferase (ALT) 46 H 7-40 U/L Alkaline Phosphatase 106 46-116 U/L B-Type Natriuretic Peptide 343.81 0-100 pg/mL Total Protein 7.6 5.7-8.2 g/dL Albumin 4.4 3.2-4.8 g/dL Assessment IMP: 1) Hemodynamically mediated TIMMY/VMN in setting of hypertensive crisis/ possible fibrinoid necrosis 2) CKD 3A 3) type 2 diabetes 4) uncontrolled hypertension 5) acute on chronic systolic and diastolic heart failure REC: - agree with calcium channel bandar, beta-bandar, diuresis - we will check urine studies, serial chemistry panels, strict Is&Os - we will benefit from ARB once TIMMY has resolved, can be initiated as outpatient - we will continue to follow closely with you - thank you for the consultation. Plan discussed with: Patient NII PLASCENCIA MD Aug 18, 2024 12:59
--- NOTE | 2024-08-18 14:55 | DVHSR ---
APPROVED REPORT EXAM: Two-dimensional and M-mode echocardiogram with Doppler and color Doppler. Blood Pressure: 191/122 mmHg INDICATION Elevated BNP RISK FACTORS Height: 5' 8", Weight: 244 DIMENSIONS LVDd4.7 (3.8-5.7cm)LA (2D)4.2 (1.9-4.0cm)Aortic Root3.3 (2.0-3.7cm) LVDs3.9 (2.5-4.0cm)LA (MM) (1.9-4.0cm)Aortic Cusp Exc2.0 (1.5-2.0cm) EF (%) 35.0 (55-70%)Rt. Atrium3.6 (1.9-4.0cm)Asc. Aorta cm IVSd1.2 (0.7-1.1cm)RV (D) (1.8-2.4cm) PWd1.1 (0.7-1.1cm) Mitral Valve MitralMitral Stenosis E wave1.20m/sMV Mean GR.mmHg A wave0.70m/sMV Peak GR.mmHg E/A ratio1.72D MVAcm2 Aortic Valve Aortic ValveAortic Stenosis V11.00m/Jennifer Mean GR.2mmHg V21.00m/Jennifer Peak GR.4mmHg LVOT Diameter2.2 (1.8-2.4cm)Doppler AVA3.80cm2 Pulmonic Valve V20.50m/s Tricuspid Valve TR Velocity3.50m/s [id number] Conclusion NORMAL LV EJECTION FRACTION OF 65% NORMAL VALVES NORMAL RV FUNCTION MODERATE DEGREE PULMONARY HYPERTENSION RVSP IS 55 MM OF HG AND IS MODERATELY HIGH NO EFFUSION
[2024-08-18] MEDS: cefTRIAXone 1GM/50ML D5W 50 ML IV SCH (21:58)
[2024-08-18] MEDS: hydrALAZINE HCL 10 MG TAB PO SCH (22:05)
[2024-08-18] MEDS: ISOSORBIDE DINITRATE 10 MG TAB PO SCH (22:06)
[2024-08-18] MEDS: AZITHROMYCIN 500MG/ 250ML 250 ML IV SCH (23:04)
--- NOTE | 2024-08-18 23:25 | DVHPNRES ---
Progress Note Date Seen: Aug 18, 2024 Resident Creating Document: ZORAIDA BERNABE RESIDENT Medical Necessity Reason Pt with a Central, PICC or Fol: No Subjective Review of Systems Fredi Mendoza is a 44-year-old male patient presents to the ED with chief complaint of progressive dyspnea from functional class II to functional class III associated with productive cough with green phlegm, fever and chills which started five days before his admission and progressively got worse prompting his visit. Patient also admits drug abuse (methamphetamine, PCP and cannabinoids). Denies palpitation, syncope, chest pain, nausea, vomiting, diarrhea, abdominal pain, bleeding, sick contacts, recent travel and motor or sensory deficits. Past medical history: Hypertension Surgical history: Denies Family history: Noncontributory Social history: Lives with roommate. Uses tobacco, marijuana, methamphetamine and PCP. Denies alcohol abuse. Allergies: Denies Home medication: Denies Patient seen and examined at bedside. Currently feels less short of breath, still on oxygen requirement (nasal cannula 2 liters/minute) Objective vital signs Vital Sign Date Time Temp Pulse Resp B/P (MAP) Pulse Ox O2 Delivery O2 Flow Rate FiO2 08/18/24 22:07 88 152/109 08/18/24 21:00 97.7 20 94 97.7 08/18/24 18:59 Room Air 0.0 08/18/24 18:59 21 medications Current Medications Medications Dose Ordered Sig/Gomez Route Start Time Stop Time Status Last Admin Dose Admin Metoprolol Tartrate 50 mg BID PO 08/18/24 10:00 08/18/24 22:07 50 MG Amlodipine Besylate 10 mg DAILY PO 08/18/24 10:00 08/18/24 10:09 10 MG Azithromycin 250 ml @ 125 mls/hr DAILY@2200 IV 08/18/24 22:00 Ipratropium [place] 0.5 mg Q4HPRN PRN NEB 08/17/24 23:45 08/18/24 18:59 0.5 MG Ceftriaxone Sodium 50 ml @ 100 mls/hr DAILY@2100 IV 08/18/24 21:00 08/18/24 21:58 100 MLS/HR Aspirin 81 mg DAILY PO 08/18/24 10:00 08/18/24 10:08 81 MG Sodium Chloride 10 ml Q8HR IV 08/18/24 06:00 08/18/24 21:58 10 ML Acetaminophen/ Hydrocodone Bitart 1 tab Q4HP PRN PO 08/17/24 23:45 Acetaminophen 650 mg Q6HP PRN PO 08/17/24 23:45 08/18/24 10:09 650 MG Furosemide 40 mg BIDD IV 08/18/24 09:21 08/18/24 18:15 40 MG Levalbuterol HCl 0.625 mg Q6HR NEB 08/18/24 12:00 08/18/24 18:59 0.625 MG Hydralazine HCl 10 mg Q8HR PO 08/18/24 22:00 08/18/24 22:05 10 MG Isosorbide Dinitrate 5 mg Q8HR PO 08/18/24 22:00 08/18/24 22:06 5 MG Examination Patient lying in bed, in no acute distress General: Lucid, afebrile, mucosae are moist Cardiovascular: Tachycardic, normal S1 and fixed splitting S2. No murmurs, gallops or rubs Respiratory: Regular ventilation mechanics, tachypneic. Bibasilar rales, rest of lung auscultation clear Abdomen: Soft, nontender, no organomegaly, normal bowel sounds MSK/skin: Mobilizes 4 limbs. Skin is dry and warm Neurological: Oriented in 3 spheres. No motor no sensitive deficits. Pupils are isocoric and reactive laboratory and microbiology Laboratory Tests 08/18/24 05:03 Test 08/18/24 05:03 Range/Units Serum Glucose 99 74-106 mg/dL Microbiology Date/Time Source Procedure Growth Status 08/17/24 21:26 Blood Blood Culture - Preliminary NO GROWTH AFTER 24 HOURS OF INCUBATION. Resulted Problem List/Assessment/Plan Problem List/Assessment/Plan Acute respiratory failure -Currently on nasal cannula at 2 L/Min Community-acquired pneumonia Gram-positive/Gram-negative -Currently under empiric IV antibiotics (ceftriaxone and azithromycin) -Ordered blood, urine and sputum cultures, pending Acute on chronic diastolic congestive heart failure (HFpEF, LVEF 65%) -Completed bedside point of care ultrasound which evidence pulmonary edema. -Currently on furosemide 40 mg IV b.i.d.. -Completed echocardiogram: LVEF 65%, normal RV function, moderate degree pulmonary hypertension with RVSP 55 mmHg Pulmonary hypertension -Completed echocardiogram which showed RVSP 55 mmHg -Probable type 1 due to methamphetamine abuse and conserved LVEF Flash pulmonary edema -Responded to nitroglycerin drip. Hypertensive emergency -Responded to nitroglycerin drip. -Indicated hydralazine and isosorbide mononitrate due to TIMMY NSTEMI type 2 -Secondary to above TIMMY hemodynamically mediated, there is no baseline creatinine -Ordered CPK to rule out rhabdomyolysis secondary to polysubstance abuse -Nephrology specialist on board Hypokalemia -Replenish Polysubstance abuse -UDS positive for PCP, methamphetamine and cannabinoids -Patient also has history of tobacco abuse -Counseled strongly on cessation polysubstance abuse Morbid obesity -Gave her advice on healthy lifestyle habits Noncompliance -Patient has history of hypertension, is not taking any medication Goals of care discussed with patient for over 18 minutes: Full code status Discussed plan with Dr. Mcdonnell, patient and nurses: Patient acute respiratory failure with multifactorial causes (pneumonia, acute congestive heart failure, polysubstance abuse, hypertensive urgency and flash pulmonary edema), responded to IV nitroglycerin, currently on p.o. medication adjusted to renal function. If patient requires IV nitroglycerin drip we will have to upgrade to MARIE status. Appreciate Nephrology specialist input. Patient has poor prognosis Plan discussed with: Patient, Other (Nurses) My Orders My Orders Orders - ZORAIDA BERNABE Procedure Category Date Status Time Furosemide Injection PHA 08/18/24 In Process (Lasix Injection) 09:21 Electrocardigram EKG 08/18/24 Logged 08:34 Vitamin D, 25-Hydroxy LAB 08/18/24 In Process 08:34 Vitamin B12 LAB 08/18/24 In Process 08:34 Levalbuterol Hcl PHA 08/18/24 In Process (Xopenex Medneb) 12:00 Urine Sodium LAB 08/18/24 Logged 08:47 Urine Potassium LAB 08/18/24 Logged 08:47 Urine LAB 08/18/24 Logged Protein/Creatinine 08:47 Date of Service: Aug 18, 2024 Billing Provider: MILLA MCDONNELL MD Common Visit Codes: [id number] INP/OBS CARE(HIGH) ZORAIDA BERNABE Aug 18, 2024 23:25 MILLA MCDONNELL MD Aug 19, 2024 21:31
[2024-08-19] VITALS (17 sets, daily range): BP systolic 122–146; BP diastolic 65–93; PULSE 62–79; RESP 18–20; TEMP 97.4–98.4; O2SAT 92–100
[2024-08-19 03:04] LABS: Protein, Urine 94.5 mg/dL (1-14)
[2024-08-19 03:07] LABS: Creatinine, Urine 113.38 mg/dL (30.0-125.0); Urine Protein/Creatinine Ratio 0.83
--- NOTE | 2024-08-19 03:49 | ECG ---
[facility] Test Date: 2024-08-17 Test Time: 21:17:22 Pat Name: DON BENAVIDES Department: ER Room: 0223T A Gender: M Mobile Q[employer] Tester: ASYA : 1980 Requested By: DEYA MAN Order Number: [id number] Reading MD: Lamont Spears Measurements Intervals [place] Rate: 108 P: 49 PA: 172 QRS: 66 QRSD: 97 T: 240 QT: 333 QTc: 447 Interpretive Statements Sinus tachycardia Left atrial enlargement Repol abnrm suggests ischemia, lateral leads Electronically Signed On 08-21-2024 8:19:07 PST by Lamnot Spears Please click the below link to view image of tracing.
[2024-08-19 07:09] LABS: Basophils # (auto) 0.1 10 ^3/uL (0-0.2); Basophils % (auto) 0.8 % (0.0-2.0); Eosinophils # (auto) 0.3 10 ^3/uL (0-0.8); Eosinophils % (auto) 2.4 % (0.0-7.0); Hematocrit 39.2 % (41.0-53.0); Hemoglobin 13.3 g/dL (13.5-17.5); Lymphocytes # (auto) 1.5 10 ^3/uL (0.4-5.4); Lymphocytes % (auto) 12.3 % (10.0-50.0); Mean Corpuscular Hemoglobin 27.4 pg (28.0-32.0); Mean Corpuscular Hgb Conc. 33.9 g/dL (32.0-36.0); Mean Corpuscular Volume 80.9 fL (80.0-100.0); Monocytes # (auto) 0.9 10 ^3/uL (0-1.3); Monocytes % (auto) 7.6 % (0.0-12.0); Neutrophils # (auto) 9.3 10 ^3/uL (1.6-8.6); Neutrophils % (auto) 76.9 % (37.0-80.0); Nucleated Red Blood Cells % 0.1 %; Platelet Count (auto) 312 10^3/uL (140-450); Red Blood Cells 4.85 10^6/uL (4.5-5.90); Red Cell Distribution Width 16.4 % (11.8-14.3)
[2024-08-19 07:21] LABS: Alanine Aminotransferase 30 U/L (7-40); Albumin 3.5 g/dL (3.2-4.8); Alkaline Phosphatase 90 U/L (46-116); Anion Gap 10 (5-15); Aspartate Aminotransferase 18 U/L (13-40); BUN/Creatinine Ratio 12.3 (10.0-20.0); Bilirubin, Direct 0.2 mg/dL (<0.3); Calcium 8.8 mg/dL (8.7-10.4); Carbon Dioxide 25 mmol/L (20-31); Chloride 102 mmol/L (98-107); Glucose 91 mg/dL (74-106); Potassium 3.5 mmol/L (3.5-5.1); Sodium 137 mmol/L (136-145)
[2024-08-19 07:22] LABS: Bilirubin, Total 0.6 mg/dL (0.2-1.0); Phosphorus 4.3 mg/dL (2.4-5.1); Total Protein 6.2 g/dL (5.7-8.2)
[2024-08-19 07:28] LABS: Blood Urea Nitrogen 40 mg/dL (9-23)
[2024-08-19 14:21] LABS: Chloride 102 mmol/L (98-107); Potassium 2.8 mmol/L (3.5-5.1); Sodium 137 mmol/L (136-145)
[2024-08-19 14:22] LABS: Anion Gap 8 (5-15); Carbon Dioxide 27 mmol/L (20-31)
[2024-08-19 14:23] LABS: Calcium 8.8 mg/dL (8.7-10.4)
[2024-08-19 14:27] LABS: BUN/Creatinine Ratio 10.9 (10.0-20.0); Blood Urea Nitrogen 34 mg/dL (9-23); Glucose 125 mg/dL (74-106)
--- NOTE | 2024-08-19 16:11 | DVHPNRES ---
Progress Note Date Seen: Aug 19, 2024 Resident Creating Document: FRANK ROMERO RESIDENT Medical Necessity Reason Pt with a Central, PICC or Fol: No Subjective Review of Systems Fredi Mendoza is a 44-year-old male patient presents to the ED with chief complaint of progressive dyspnea from functional class II to functional class III associated with productive cough with green phlegm, fever and chills which started five days before his admission and progressively got worse prompting his visit. Patient seen and examined at the bedside. Currently weaning off from oxygen. Reported improvement in his symptoms since admission, sleep was good. Planning to DC tomorrow. Patient reports: No new complaints Objective vital signs Vital Sign Date Time Temp Pulse Resp B/P (MAP) Pulse Ox O2 Delivery O2 Flow Rate FiO2 08/19/24 13:46 69 18 98 08/19/24 13:40 140/91 08/19/24 13:40 Room Air 0.0 08/19/24 13:40 21 08/19/24 09:00 98.4 98.4 Total Intake and Output 08/18/24 08/18/24 08/19/24 15:00 23:00 07:00 Intake Total 0 ml 330 ml Output Total 2400 ml 0 ml Balance -2400 ml 0 ml 330 ml medications Current Medications Medications Dose Ordered Sig/Gomez Route Start Time Stop Time Status Last Admin Dose Admin Metoprolol Tartrate 50 mg BID PO 08/18/24 10:00 08/19/24 10:50 50 MG Amlodipine Besylate 10 mg DAILY PO 08/18/24 10:00 08/19/24 10:50 10 MG Azithromycin 250 ml @ 125 mls/hr DAILY@2200 IV 08/18/24 22:00 08/18/24 23:04 125 MLS/HR Ipratropium [place] 0.5 mg Q4HPRN PRN NEB 08/17/24 23:45 08/19/24 00:18 0.5 MG Ceftriaxone Sodium 50 ml @ 100 mls/hr DAILY@2100 IV 08/18/24 21:00 08/18/24 21:58 100 MLS/HR Aspirin 81 mg DAILY PO 08/18/24 10:00 08/19/24 10:50 81 MG Sodium Chloride 10 ml Q8HR IV 08/18/24 06:00 08/19/24 10:53 10 ML Acetaminophen/ Hydrocodone Bitart 1 tab Q4HP PRN PO 08/17/24 23:45 Acetaminophen 650 mg Q6HP PRN PO 08/17/24 23:45 08/18/24 10:09 650 MG Furosemide 40 mg BIDD IV 08/18/24 09:21 08/19/24 05:18 40 MG Levalbuterol HCl 0.625 mg Q6HR NEB 08/18/24 12:00 08/19/24 13:40 0.625 MG Hydralazine HCl 10 mg Q8HR PO 08/18/24 22:00 08/19/24 13:40 10 MG Isosorbide Dinitrate 5 mg Q8HR PO 08/18/24 22:00 08/19/24 13:40 5 MG Examination Pt is lying on bed General Appearance: Alert, Oriented X3, Cooperative, Not in acute distress HEENT: Atraumatic, Mucous membranes moist/pink Respiratory: Mild bibasilar crackles and rales, Normal air movement, Cardiovascular: Regular rate, Normal S1, Normal S2, No murmurs Abdominal: Active bowel sounds, Soft, no distention, no tenderness Extremities: No edema, Normal pulses, No tenderness/swelling Skin: No Significant rash, except past surgical scars Neuro: Normal speech, sensorimotor deficits none Psych/Mental Status: Mental status NL, Mood NL Nurse was there as mariamne during examination laboratory and microbiology Laboratory Tests 08/19/24 13:16 08/19/24 06:22 Test 08/19/24 13:16 Range/Units Serum Glucose 125 H 74-106 mg/dL Microbiology Date/Time Source Procedure Growth Status 08/17/24 21:26 Blood Blood Culture - Preliminary NO GROWTH AFTER 24 HOURS OF INCUBATION. Resulted Labs and/or images reviewed: Labs reviewed by me, Image(s) reviewed by me Problem List/Assessment/Plan Problem List/Assessment/Plan # acute hypoxic respiratory failure likely due to pulmonary edema # Flash pulmonary edema - Currently on nasal cannula at 2 L/Min and weaning off - responded to nitroglycerin drip # Community-acquired pneumonia Gram-positive/Gram-negative -Currently under empiric IV antibiotics (ceftriaxone and azithromycin) -Ordered blood, urine and sputum cultures, pending # Acute on chronic diastolic congestive heart failure (HFpEF, LVEF 65%) -Completed bedside point of care ultrasound which evidence pulmonary edema. -Currently on furosemide 40 mg IV b.i.d.. -Completed echocardiogram: LVEF 65%, normal RV function, moderate degree pulmonary hypertension with RVSP 55 mmHg # Pulmonary hypertension -Completed echocardiogram which showed RVSP 55 mmHg -Probable type 1 due to methamphetamine abuse and conserved LVEF # Hypertensive emergency -Responded to nitroglycerin drip. -Indicated hydralazine and isosorbide mononitrate due to TIMMY # NSTEMI type 2 -Secondary to above # TIMMY/VMN in setting of hypertensive crisis/ possible fibrinoid necrosis # CKD 3A -Ordered CPK to rule out rhabdomyolysis secondary to polysubstance abuse -Nephrology specialist , advised ARB once TIMMY has resolved, can be initiated as outpatient - renal ultrasound showed echogenic bilateral suggest chronic renal disease -ordered urine studies, serial chemistry panels, strict Is&Os # Hypokalemia -Replenish -monitor lab # Polysubstance abuse -UDS positive for PCP, methamphetamine and cannabinoids -Patient also has history of tobacco abuse -Counseled strongly on cessation polysubstance abuse # Morbid obesity -Gave her advice on healthy lifestyle habits # Medication Noncompliance -Patient has history of hypertension, is not taking any medication SCD for now No gib ppx Cardiac diet Reconciled home meds Goals of care discussed with the patient for more than 27 minutes: Full code status Case management discussed with Dr. Song, patient and nurse Plan discussed with: Patient My Orders My Orders Orders - FRANK ROMERO Procedure Category Date Status Time Potassium LAB 08/19/24 Logged 17:30 Magnesium LAB 08/19/24 Logged 17:30 Date of Service: Aug 19, 2024 Billing Provider: MILLA SONG MD Common Visit Codes: [id number] INP/OBS CARE(HIGH) FRANK ROMERO Aug 19, 2024 16:11 MILLA SONG MD Aug 19, 2024 21:32
[2024-08-19] MEDS: POTASSIUM EFFERVESENT TAB 25 MEQ PO ONE (16:14)
--- NOTE | 2024-08-19 16:31 | DVHPN2 ---
Progress Note Date Seen: Aug 19, 2024 Medical Necessity Reason Pt with a Central, PICC or Fol: No Subjective Review of Systems Denies any new complaints. Patient reports: No new complaints Objective vital signs Vital Sign Date Time Temp Pulse Resp B/P (MAP) Pulse Ox O2 Delivery O2 Flow Rate FiO2 08/19/24 13:46 69 18 98 08/19/24 13:40 140/91 08/19/24 13:40 Room Air 0.0 08/19/24 13:40 21 08/19/24 09:00 98.4 98.4 Total Intake and Output 08/18/24 08/18/24 08/19/24 15:00 23:00 07:00 Intake Total 0 ml 330 ml Output Total 2400 ml 0 ml Balance -2400 ml 0 ml 330 ml medications Current Medications Medications Dose Ordered Sig/Gomez Route Start Time Stop Time Status Last Admin Dose Admin Metoprolol Tartrate 50 mg BID PO 08/18/24 10:00 08/19/24 10:50 50 MG Amlodipine Besylate 10 mg DAILY PO 08/18/24 10:00 08/19/24 10:50 10 MG Azithromycin 250 ml @ 125 mls/hr DAILY@2200 IV 08/18/24 22:00 08/18/24 23:04 125 MLS/HR Ipratropium [place] 0.5 mg Q4HPRN PRN NEB 08/17/24 23:45 08/19/24 00:18 0.5 MG Ceftriaxone Sodium 50 ml @ 100 mls/hr DAILY@2100 IV 08/18/24 21:00 08/18/24 21:58 100 MLS/HR Aspirin 81 mg DAILY PO 08/18/24 10:00 08/19/24 10:50 81 MG Sodium Chloride 10 ml Q8HR IV 08/18/24 06:00 08/19/24 10:53 10 ML Acetaminophen/ Hydrocodone Bitart 1 tab Q4HP PRN PO 08/17/24 23:45 Acetaminophen 650 mg Q6HP PRN PO 08/17/24 23:45 08/18/24 10:09 650 MG Furosemide 40 mg BIDD IV 08/18/24 09:21 08/19/24 05:18 40 MG Levalbuterol HCl 0.625 mg Q6HR NEB 08/18/24 12:00 08/19/24 13:40 0.625 MG Hydralazine HCl 10 mg Q8HR PO 08/18/24 22:00 08/19/24 13:40 10 MG Isosorbide Dinitrate 5 mg Q8HR PO 08/18/24 22:00 08/19/24 13:40 5 MG Examination Gen: Appears stated age. In no acute distress. Pulm: Diminished bilaterally CV: RRR Ext:No edema Neuro: Alert and orientedx4 laboratory and microbiology Laboratory Tests 08/19/24 13:16 08/19/24 06:22 Test 08/19/24 13:16 Range/Units Serum Glucose 125 H 74-106 mg/dL Microbiology Date/Time Source Procedure Growth Status 08/17/24 21:26 Blood Blood Culture - Preliminary NO GROWTH AFTER 24 HOURS OF INCUBATION. Resulted Labs and/or images reviewed: Labs reviewed by me Problem List/Assessment/Plan Problem List/Assessment/Plan IMP: 1) Hemodynamically mediated TIMMY/VMN in setting of hypertensive crisis/ possible fibrinoid necrosis-ongoing creat 3.26, GFR 23 2) CKD 3A 3) type 2 diabetes 4) uncontrolled hypertension- ongoing reaching target range 5) acute on chronic systolic and diastolic heart failure Renal U/S IMPRESSION: The renal parenchyma is echogenic bilaterally suggesting medical renal disease. REC: - Continue current antihypertensive regimen - Agree with continuing diuresis - Potassium supplementation prn - Strict I&Os - Will benefit from ARB once TIMMY has resolved, can be initiated as outpatient - Will continue to follow Plan discussed with: Patient NERY RAMOS [employer] ENGINEER Aug 19, 2024 16:31
[2024-08-19 18:09] LABS: Potassium 3.4 mmol/L (3.5-5.1)
[2024-08-19 18:16] LABS: Magnesium 2.1 mg/dL (1.6-2.6)
[2024-08-20] VITALS (12 sets, daily range): BP systolic 123–144; BP diastolic 85–100; PULSE 66–80; RESP 18–20; TEMP 97.8–98.2; O2SAT 95–100
[2024-08-20] MEDS: POTASSIUM EFFERVESENT TAB 25 MEQ PO ONE (06:51)
[2024-08-20 07:36] LABS: Anion Gap 10 (5-15); Carbon Dioxide 25 mmol/L (20-31); Chloride 102 mmol/L (98-107); Potassium 3.1 mmol/L (3.5-5.1); Sodium 137 mmol/L (136-145)
[2024-08-20 07:42] LABS: BUN/Creatinine Ratio 12.2 (10.0-20.0); Blood Urea Nitrogen 37 mg/dL (9-23); Glucose 94 mg/dL (74-106)
--- NOTE | 2024-08-20 12:52 | DVHPN2 ---
Progress Note Date Seen: Aug 20, 2024 Medical Necessity Reason Pt with a Central, PICC or Fol: No Subjective Patient reports: No new complaints Other Systems: Patient seen and examined by myself in follow-up today Objective vital signs Vital Sign Date Time Temp Pulse Resp B/P (MAP) Pulse Ox O2 Delivery O2 Flow Rate FiO2 08/20/24 12:18 97.9 75 18 133/100 (111) 100 97.9 08/20/24 12:14 Room Air 0.0 08/20/24 12:14 21 Total Intake and Output 08/19/24 08/19/24 08/20/24 15:00 23:00 07:00 Intake Total 237 ml 850 ml 700 ml Output Total 1325 ml 850 ml Balance 237 ml -475 ml -150 ml medications Current Medications Medications Dose Ordered Sig/Gomez Route Start Time Stop Time Status Last Admin Dose Admin Metoprolol Tartrate 50 mg BID PO 08/18/24 10:00 08/20/24 09:59 50 MG Amlodipine Besylate 10 mg DAILY PO 08/18/24 10:00 08/20/24 09:59 10 MG Azithromycin 250 ml @ 125 mls/hr DAILY@2200 IV 08/18/24 22:00 08/19/24 22:40 125 MLS/HR Ipratropium [place] 0.5 mg Q4HPRN PRN NEB 08/17/24 23:45 08/20/24 06:01 0.5 MG Ceftriaxone Sodium 50 ml @ 100 mls/hr DAILY@2100 IV 08/18/24 21:00 08/19/24 21:09 100 MLS/HR Aspirin 81 mg DAILY PO 08/18/24 10:00 08/20/24 09:58 81 MG Sodium Chloride 10 ml Q8HR IV 08/18/24 06:00 08/20/24 05:50 10 ML Acetaminophen/ Hydrocodone Bitart 1 tab Q4HP PRN PO 08/17/24 23:45 Acetaminophen 650 mg Q6HP PRN PO 08/17/24 23:45 08/18/24 10:09 650 MG Furosemide 40 mg BIDD IV 08/18/24 09:21 08/20/24 05:50 40 MG Levalbuterol HCl 0.625 mg Q6HR NEB 08/18/24 12:00 08/20/24 12:14 0.625 MG Hydralazine HCl 10 mg Q8HR PO 08/18/24 22:00 08/20/24 05:49 10 MG Isosorbide Dinitrate 5 mg Q8HR PO 08/18/24 22:00 08/20/24 05:51 5 MG Examination: LUNGS:Normal, CVS:Normal, MSK:Normal laboratory and microbiology Laboratory Tests 08/20/24 06:12 08/19/24 06:22 Test 08/20/24 06:12 Range/Units Serum Glucose 94 74-106 mg/dL Microbiology Date/Time Source Procedure Growth Status 08/18/24 23:04 Sputum Gram Stain - Final Resulted 08/18/24 23:04 Sputum Respiratory Culture - Preliminary Resulted 08/17/24 21:26 Blood Blood Culture - Preliminary NO GROWTH AFTER 48 HOURS OF INCUBATION. Resulted Problem List/Assessment/Plan Problem List/Assessment/Plan Acute kidney injury superimposed Chronic Kidney Disease stage 3 B secondary hemodynamic mediated Diabetes mellitus type 2 Hypertension Acute on chronic diastolic heart failure Hypokalemia Recommendations Kidney function slightly improving Increased urine output Decreased furosemide 40 mg q.a.m. KCL replacement Kidney ultrasound reported bilateral echogenic kidney We will continue to follow Plan discussed with: Patient OZZY LAKE MD Aug 20, 2024 12:52
[2024-08-20] MEDS ORDERED: FUROSEMIDE 40 MG/4 ML VIAL IV SCH (13:00)
[2024-08-20] MEDS ORDERED: MET50T PO (13:56)
[2024-08-20] MEDS ORDERED: AZIT-43 PO (13:56)
[2024-08-20] MEDS ORDERED: ACET-1882 PO (13:56)
[2024-08-20] MEDS ORDERED: ASPI-325 PO (13:56)
[2024-08-20] MEDS ORDERED: FURO20TA3 PO (13:56)
[2024-08-20] MEDS ORDERED: AML5T PO (13:56)
[2024-08-20] MEDS ORDERED: HYDR-2792 PO (13:56)
[2024-08-20] MEDS ORDERED: ISOS10TA2 PO (13:56)
--- NOTE | 2024-08-20 15:38 | DVHDSRES ---
Discharge Summary Date of Admission Resident Creating Document: FRANK ROMERO RESIDENT Aug 17, 2024 at 23:40 Date of Discharge: Aug 20, 2024 Admitting Diagnosis Shortness of breath Labs/Diagnostic Data: Laboratory Results Test 08/20/24 06:12 08/19/24 17:30 08/19/24 06:22 08/19/24 02:30 Sodium Level 137 mmol/L (136-145) Potassium Level 3.1 mmol/L (3.5-5.1) Chloride Level 102 mmol/L (98-107) Carbon Dioxide Level 25 mmol/L (20-31) Anion Gap 10 (5-15) Blood Urea Nitrogen 37 mg/dL (9-23) Creatinine 3.04 mg/dL (0.700-1.30) Glomerular Filtration Rate Calc 25 mL/min (>90) BUN/Creatinine Ratio 12.2 (10.0-20.0) Serum Glucose 94 mg/dL (74-106) Calcium Level 9.0 mg/dL (8.7-10.4) Magnesium Level 2.1 mg/dL (1.6-2.6) White Blood Count 12.0 10^3/uL (4.4-10.8) Red Blood Count 4.85 10^6/uL (4.5-5.90) Hemoglobin 13.3 g/dL (13.5-17.5) Hematocrit 39.2 % (41.0-53.0) Mean Corpuscular Volume 80.9 fL (80.0-100.0) Mean Corpuscular Hemoglobin 27.4 pg (28.0-32.0) Mean Corpuscular Hemoglobin Concent 33.9 g/dL (32.0-36.0) Red Cell Distribution Width 16.4 % (11.8-14.3) Platelet Count 312 10^3/uL (140-450) Mean Platelet Volume 7.4 fL (6.9-10.8) Neutrophils (%) (Auto) 76.9 % (37.0-80.0) Lymphocytes (%) (Auto) 12.3 % (10.0-50.0) Monocytes (%) (Auto) 7.6 % (0.0-12.0) Eosinophils (%) (Auto) 2.4 % (0.0-7.0) Basophils (%) (Auto) 0.8 % (0.0-2.0) Neutrophils # (Auto) 9.3 10 ^3/uL (1.6-8.6) Lymphocytes # (Auto) 1.5 10 ^3/uL (0.4-5.4) Monocytes # (Auto) 0.9 10 ^3/uL (0-1.3) Eosinophils # (Auto) 0.3 10 ^3/uL (0-0.8) Basophils # (Auto) 0.1 10 ^3/uL (0-0.2) Nucleated Red Blood Cells 0.1 % Phosphorus Level 4.3 mg/dL (2.4-5.1) Total Bilirubin 0.6 mg/dL (0.2-1.0) Direct Bilirubin 0.2 mg/dL (<0.3) Aspartate Amino Transferase (AST) 18 U/L (13-40) Alanine Aminotransferase (ALT) 30 U/L (7-40) Alkaline Phosphatase 90 U/L (46-116) Creatine Kinase 135 U/L (46-171) Total Protein 6.2 g/dL (5.7-8.2) Albumin 3.5 g/dL (3.2-4.8) Urine Creatinine 113.38 mg/dL (30.0-125.0) Urine Protein/Creatinine Ratio 0.83 Urine Sodium 23 mmol/L (40-220) Urine Potassium 36 mmol/L (12-62) Urine Total Protein 94.5 mg/dL (1-14) Test 08/18/24 09:18 08/18/24 09:00 08/17/24 21:39 08/17/24 21:26 Influenza Type A Antigen Negative (Negative) Influenza Type B Antigen Negative (Negative) SARS-CoV-2 Antigen (Rapid) Negative (NEGATIVE) Prothrombin Time 11.6 sec (9.3-11.8) Prothrombin Time INR 1.10 (0.9-1.15) Activated Partial Thromboplast Time 31.2 SEC (24.5-34.5) Hemoglobin A1c 5.4 % A1C (<5.7) Troponin I High Sensitivity 132 ng/L (</=54) Triglycerides Level 103 mg/dL (< 150) Cholesterol Level 227 mg/dL (< 200) LDL Cholesterol 167 mg/dL (< 100) HDL Cholesterol 45 mg/dL (40-59) Thyroid Stimulating Hormone (TSH) 2.68 uIU/mL (0.55-4.78) Plasma/Serum Blood Alcohol < 3.0 mg/dL (<10) Urine Color Light-yellow (Yellow) Urine Clarity Clear (Clear) Urine pH 6.0 (5.0-9.0) Urine Specific [place] 1.012 (1.001-1.035) Urine Protein 2+ (Negative) Urine Ketones Negative (Negative) Urine Blood 2+ /uL (Negative) Urine Nitrite Negative (Negative) Urine Bilirubin Negative (Negative) Urine Urobilinogen Normal mg/dL (Negative) Urine Leukocyte Esterase Negative /uL (Negative) Urine RBC 72 /hpf (0 - 3) Urine WBC 2 /hpf (0 - 3) Urine Squamous Epithelial Cells None seen /hpf (<5) Urine Bacteria Mod /hpf (None Seen) Urine Sperm Present /hpf (None Seen) Urine Glucose Normal mg/dL (Normal) Urine Opiates Screen Neg (NEGATIVE) Urine Fentanyl Screen Neg (NEGATIVE) Urine Barbiturates Screen Neg (NEGATIVE) Urine Phencyclidine Screen Pos (NEGATIVE) Urine Amphetamines Screen Pos (NEGATIVE) Urine Benzodiazepines Screen Neg (NEGATIVE) Urine Cocaine Screen Neg (NEGATIVE) Urine Cannabinoids Screen Pos (NEGATIVE) Lactic Acid Level 1.2 mmol/L (0.4-2.0) B-Type Natriuretic Peptide 343.81 pg/mL (0-100) Other Laboratory Tests 08/20/24 06:12 08/19/24 06:22 Brief Hx & Hospital Course: Fredi Mendoza is a 44-year-old male patient presents to the ED with chief complaint of progressive dyspnea from functional class II to functional class III associated with productive cough with green phlegm, fever and chills which started five days before his admission and progressively got worse prompting his visit. Patient also admits drug abuse (methamphetamine, PCP and cannabinoids). Denies palpitation, syncope, chest pain, nausea, vomiting, diarrhea, abdominal pain, bleeding, sick contacts, recent travel and motor or sensory deficits. Patient required hospital admission for further evaluation and management of acute hypoxic respiratory failure. CXR showed flash pulmonary edema and right lower lobe pneumonia. patient was on 2 L oxygen NC and given azithromycin and ceftriaxone. Patient received breathing treatments with the ipratropium med nebs, levalbuterol HCl med-nebs. Patient pulmonary edema does responded to nitroglycerin drip. Ordered blood, urine and sputum cultures. Echocardiogram showed LVEF 65%, normal RV function, moderate degree pulmonary hypertension with RVSP 55 mmHg. Hypertensive emergency responded to nitroglycerin drip and indicated hydralazine and isosorbide mononitrate due to TIMMY. nephrology senior erp consultant evaluated the patient, advised ARB once TIMMY has resolved, can be initiated as outpatient. Patient was counseled regarding cessation of amphetamines, PCP and marijuana for more than 17 minutes. Continuously monitor electrolytes And blood pressure. Patient condition was improved, hemodynamically stable and in condition to be discharged home with optimal medical treatment. Patient was advised about healthy lifestyle habits including diet and exercise and to quit drug abuse and to follow up with PCP. Pt is lying on bed General Appearance: Alert, Oriented X3, Cooperative, Not in acute distress HEENT: Atraumatic, Mucous membranes moist/pink Respiratory: Mild bibasilar crackles and rales, Normal air movement, Cardiovascular: Regular rate, Normal S1, Normal S2, No murmurs Abdominal: Active bowel sounds, Soft, no distention, no tenderness Extremities: No edema, Normal pulses, No tenderness/swelling Skin: No Significant rash, except past surgical scars Neuro: Normal speech, sensorimotor deficits none Psych/Mental Status: Mental status NL, Mood NL Nurse was there as sharperone during examination Operations or Procedures EXAM: US Retroperitoneal Complete, Renal IMPRESSION: The renal parenchyma is echogenic bilaterally suggesting medical renal disease. CHEST RADIOGRAPH IMPRESSION: 1. Right lower lobe pneumonia. ECHO: NORMAL LV EJECTION FRACTION OF 65% NORMAL VALVES NORMAL RV FUNCTION MODERATE DEGREE PULMONARY HYPERTENSION RVSP IS 55 MM OF HG AND IS MODERATELY HIGH NO EFFUSION Condition at Discharge: Stable Final Diagnosis/Problems List # acute hypoxic respiratory failure likely due to pulmonary edema # Flash pulmonary edema # Community-acquired pneumonia Gram-positive/Gram-negative # Acute on chronic diastolic congestive heart failure (HFpEF, LVEF 65%) # Pulmonary hypertension # Hypertensive emergency # NSTEMI type 2 # TIMMY/VMN in setting of hypertensive crisis/ possible fibrinoid necrosis # CKD 3A # Hypokalemia # Polysubstance abuse( phencyclidine, marijuana, amphetamines) # Morbid obesity # Medication Noncompliance Discharge Disposition: Home Discharge Instruct/Medications Diet: Cardiac 2g Na,low cholest Activity: No Restrictions, As Tolerated Follow Up/Referral: PCP Medications: Per EMR Discharge Statement: "Patient was advised to return to the ER or call 911 if any headaches, dizziness, shortness of breath, chest pain, abdominal pain, bleeding, fevers, or worsening of medical condition. Patient was counseled about treatment plan, medications, possible side effects, patientverbalized understanding. All questions were answered to the best of my ability. This discharge took greater then 30 minutes in planning, reviewing documentation, counseling the patient, and discussing with other team members." ASSESSMENT ASSESSMENT Assessment Acute hypoxic respiratory failure Acute flash pulmonary edema Date of Service: Aug 20, 2024 Billing Provider: MILLA MCDONNELL MD Common Visit Codes: 28533-YOS/OBS DISCH DAY >30min FRANK ROMERO RESIDENT Aug 20, 2024 15:38 MILLA MCDONNELL MD Aug 20, 2024 20:12
== END 2024-08-20 13:30 | disposition home or self-care (01) | DRG 720 ==
LOC: ER 21:09 → TELE 23:40 → TELE-CENTR 23:58
PROVIDERS: ADMIT Student in an Organized Health Care Education/Training Program; ATTEND Student in an Organized Health Care Education/Training Program
DX: A41.9 Sepsis, unspecified organism (principal); J96.01 Acute respiratory failure with hypoxia; N17.0 Acute kidney failure with tubular necrosis; I50.33 Acute on chronic diastolic (congestive) heart failure; J15.69 Pneumonia due to other Gram-negative bacteria; I21.A1 Myocardial infarction type 2; J81.0 Acute pulmonary edema; I13.0 Hypertensive heart and chronic kidney disease with heart failure and stage 1 through stage 4 chronic kidney disease, or unspecified chronic kidney disease; I27.20 Pulmonary hypertension, unspecified; J15.9 Unspecified bacterial pneumonia; E87.6 Hypokalemia; Z20.822 Contact with and (suspected) exposure to COVID-19; I16.1 Hypertensive emergency; F19.10 Other psychoactive substance abuse, uncomplicated; E66.01 Morbid (severe) obesity due to excess calories; E11.22 Type 2 diabetes mellitus with diabetic chronic kidney disease; N18.32 Chronic kidney disease, stage 3b; Z91.148 Patient's other noncompliance with medication regimen for other reason; Z68.35 Body mass index [BMI] 35.0-35.9, adult
CPT/HCPCS: 36415; 71045; 76775; 80048; 80053; 80061; 80076; 80307; 80320; 81001; 82306; 82550; 82570; 82607; 83036; 83605; 83735; 83880; 84100; 84132; 84133; 84156; 84300; 84443; 84484; 85025; 85610; 85730; 87040; 87070; 87086; 87205; 87426; 87804; 93005; 93306; 94640; 94660; 96365; 96368; 96375; 99291; G0378; J2405

== ENCOUNTER 2024-09-30 03:30 | Emergency (ER) | payer OTHER ==
[~2024-09-30] VITALS: Ht 177.8 cm; Wt 114.6 kg
[~2024-09-30 03:30] MED LIST: ACET-1882 PO; AML5T PO; ASPI-325 PO; AZIT-43 PO; FURO20TA3 PO; HYDR-2792 PO; ISOS10TA2 PO; MET50T PO
[2024-09-30] MEDS: cloNIDine HCL 0.1 MG TAB PO ONE (04:05)
--- NOTE | 2024-09-30 05:58 | DVH ---
CHEST RADIOGRAPH Indication: SOB Technique: 2 views of the chest were obtained Comparison: 08/17/2024 IMPRESSION: The heart is enlarged. Suspected patchy airspace opacity in the left lower lobe. No sizable effusion or pneumothorax.
[2024-09-30 06:14] LABS: Basophils # (auto) 0.1 10 ^3/uL (0-0.2); Basophils % (auto) 1.1 % (0.0-2.0); Eosinophils # (auto) 0.2 10 ^3/uL (0-0.8); Eosinophils % (auto) 1.3 % (0.0-7.0); Hematocrit 35.6 % (41.0-53.0); Lymphocytes # (auto) 1.5 10 ^3/uL (0.4-5.4); Lymphocytes % (auto) 11.4 % (10.0-50.0); Mean Corpuscular Hgb Conc. 33.8 g/dL (32.0-36.0); Mean Corpuscular Volume 79.8 fL (80.0-100.0); Monocytes # (auto) 0.8 10 ^3/uL (0-1.3); Monocytes % (auto) 5.9 % (0.0-12.0); Neutrophils # (auto) 10.5 10 ^3/uL (1.6-8.6); Neutrophils % (auto) 80.3 % (37.0-80.0); Platelet Count (auto) 288 10^3/uL (140-450); Red Blood Cells 4.46 10^6/uL (4.5-5.90); Red Cell Distribution Width 17.3 % (11.8-14.3)
[2024-09-30 06:22] LABS: Alanine Aminotransferase 36 U/L (7-40); Albumin 3.9 g/dL (3.2-4.8); Alkaline Phosphatase 110 U/L (46-116); Anion Gap 9 (5-15); Aspartate Aminotransferase 33 U/L (13-40); Bilirubin, Total 0.8 mg/dL (0.2-1.0); Calcium 9.1 mg/dL (8.7-10.4); Carbon Dioxide 25 mmol/L (20-31); Chloride 105 mmol/L (98-107); Sodium 139 mmol/L (136-145)
[2024-09-30 06:23] LABS: Total Protein 6.5 g/dL (5.7-8.2)
[2024-09-30 06:36] LABS: Blood Urea Nitrogen 31 mg/dL (9-23); Glucose 112 mg/dL (74-106); Potassium 3.3 mmol/L (3.5-5.1)
--- NOTE | 2024-09-30 07:17 | ED.PDOC ---
SOB-HPI HPI Comments 44 year old male presents to the ED with a chief complaint of shortness of breath onset last night. Patient states he was asleep when he began experiencing shortness of breath. Patient has a PMHx of CHF, HTN and is currently on a Diuretic medication but is still experiencing bilateral lower extremity edema. Denies chest pain, nausea, vomiting, diarrhea, dizziness, headache. No other symptoms or modifying factors present at this time. Chief Complaint: Shortness of Breath Time Seen by MD: 06:38 Reviewed notes: Medications, Allergies Information Source: Patient Mode of Arrival: Ambulatory Severity: Moderate Timing: Hours Duration: Since onset Context: While Asleep PE Risk Factors: None History of: CHF Prehospital treatment: None Modifying Factors: Nothing Associated Signs and Symptoms: Leg Swelling Radiation: No Radiation Past Medical History PAST MEDICAL HISTORY: CHF, HTN Surgical History: Denies all surgeries Family History Family History: Unknown Social History Smoker: Non-Smoker Alcohol: Denies ETOH Use Drugs: Methamphetamine Lives In: Home Respiratory: reports: shortness of breath Musculoskeletal: reports: others (bilateral lower extremity edema) Physical Exam General Appearance: Moderate Distress HEENT: Normal ENT Inspection, Pharynx Normal, TMs Normal Neck: Full Range of Motion, Non-Tender, Normal, Normal Inspection Respiratory: Respiratory Distress, Other (Coarse breath sounds) Cardiovascular: Tachycardia Breast Exam: Deferred Gastrointestinal: No Organomegaly, Non Tender, No Pulsatile Mass, Normal Bowel Sounds, Soft Genitalia: Deferred Pelvic: Deferred Rectal: Deferred Extremities: No calf tenderness, Normal capillary refill, Normal inspection, Normal range of motion, Non-tender, No pedal edema Musculoskeletal : Apperance: Normal Neurologic: Alert, eeg tech II-XII nml as Tested, No Motor Deficits, Normal Affect, Normal Mood, No Sensory Deficits Cerebellar Function: Normal Reflexes: Normal Skin: Dry, Normal Color, Warm Peripheral Pulses: 3+ Radial (R), 3+ Radial (L) Lymphatic: No Adenopathy Was a procedure done? Was a procedure done?: No Differential Dx Differential Diagnosis: Anxiety, Asthma, Bronchitis, CHF, COPD X-Ray, Labs, Meds, VS Vital Signs Date Time Temp Pulse Resp B/P (MAP) Pulse Ox O2 Delivery O2 Flow Rate FiO2 09/30/24 06:34 98.1 94 20 193/134 (153) 96 98.1 09/30/24 06:28 193/134 09/30/24 04:40 78 09/30/24 04:05 233/144 09/30/24 03:45 99.2 93 18 233/144 (173) 98 Lab Test 09/30/24 05:48 Range/Units White Blood Count 13.0 H 4.4-10.8 10^3/uL Red Blood Count 4.46 L 4.5-5.90 10^6/uL Hemoglobin 12.0 L 13.5-17.5 g/dL Hematocrit 35.6 L 41.0-53.0 % Mean Corpuscular Volume 79.8 L 80.0-100.0 fL Mean Corpuscular Hemoglobin 27.0 L 28.0-32.0 pg Mean Corpuscular Hemoglobin Concent 33.8 32.0-36.0 g/dL Red Cell Distribution Width 17.3 H 11.8-14.3 % Platelet Count 288 140-450 10^3/uL Mean Platelet Volume 6.8 L 6.9-10.8 fL Neutrophils (%) (Auto) 80.3 H 37.0-80.0 % Lymphocytes (%) (Auto) 11.4 10.0-50.0 % Monocytes (%) (Auto) 5.9 0.0-12.0 % Eosinophils (%) (Auto) 1.3 0.0-7.0 % Basophils (%) (Auto) 1.1 0.0-2.0 % Neutrophils # (Auto) 10.5 H 1.6-8.6 10 ^3/uL Lymphocytes # (Auto) 1.5 0.4-5.4 10 ^3/uL Monocytes # (Auto) 0.8 0-1.3 10 ^3/uL Eosinophils # (Auto) 0.2 0-0.8 10 ^3/uL Basophils # (Auto) 0.1 0-0.2 10 ^3/uL Nucleated Red Blood Cells 0.0 % Sodium Level 139 136-145 mmol/L Potassium Level 3.3 L 3.5-5.1 mmol/L Chloride Level 105 98-107 mmol/L Carbon Dioxide Level 25 20-31 mmol/L Anion Gap 9 5-15 Blood Urea Nitrogen 31 H 9-23 mg/dL Creatinine 3.10 H 0.700-1.30 mg/dL Glomerular Filtration Rate Calc 25 >90 mL/min BUN/Creatinine Ratio 10.0 10.0-20.0 Serum Glucose 112 H 74-106 mg/dL Calcium Level 9.1 8.7-10.4 mg/dL Total Bilirubin 0.8 0.2-1.0 mg/dL Aspartate Amino Transferase (AST) 33 13-40 U/L Alanine Aminotransferase (ALT) 36 7-40 U/L Alkaline Phosphatase 110 46-116 U/L Troponin I High Sensitivity 146 *H </=54 ng/L B-Type Natriuretic Peptide 488.44 0-100 pg/mL Total Protein 6.5 5.7-8.2 g/dL Albumin 3.9 3.2-4.8 g/dL Current Medications Medications (Trade) Dose Ordered Sig/Gomez Route Start Time Stop Time Status Last Admin Clonidine HCl (Catapres Tablet) 0.3 mg ONCE ONCE PO 09/30/24 04:00 09/30/24 04:01 DC 09/30/24 04:05 Patient alert. Complaining of shortness a breath. Cardiac marker elevated. BNP elevated. Kidney function elevated. Blood pressure elevated. Was given clonidine. Was given labetalol. Was given Lovenox. Establish intravenous access. Was given Lasix. Potassium low. Was given potassium. EKG reviewed does not show any acute changes. Cardiology consultation. Echocardiogram. Chest x-ray reviewed does show pneumonia. Was given Levaquin. Explained to the patient. Continue cardiac monitoring. Time of 1ST Reevaluation: 07:08 Reevaluation 1ST: Unchanged Patient Education/Counseling: Diagnosis, Treatment, Prognosis Family Education/Counseling: No Family Present Additional Information I reviewed the following notes from patient's past medical encounters: none The following tests were ordered, and results were reviewed by me: XY CHEST 2 VIEWS, CBC, CMP, TROP- x3, drug screen, UA, BNP, BLOOD CULTURE I reviewed and agreed with the following test results read by other providers: XY CHEST 2 VIEWS I discussed treatment and results with medical personnel and patient Departure 1 Departure Time of Disposition: 07:30 Impression: Primary Impression: CHF exacerbation Qualified Codes: I50.43 - Acute on chronic combined systolic (congestive) and diastolic (congestive) heart failure Additional Impressions: Hypertensive urgency Pneumonia, unspecified organism Qualified Codes: J18.9 - Pneumonia, unspecified organism Demand ischemia Acute renal injury Disposition: ADMITTED INPATIENT Admit to: Med Surg Condition: Guarded Critical Care Note Critical Care Time?: Yes (90 min-critical care time only) Stability Stability form required: No Heart Score Heart Score: Heart Score Response (Comments) Value History Slightly Suspicious 0 EKG Normal 0 Age <45 0 Risk Factors >3 or Hx ASHD 2 Troponin >3 x's Normal limit 2 Total 4 I personally scribed for KEI BAZAN MD ([email or web address]) on 09/30/24 at 07:17. Electronically submitted by Otilia Hung ([email or web address]). I personally scribed for KEI BAZAN MD ([email or web address]) on 09/30/24 at 07:34. Electronically submitted by Otilia Hung ([email or web address]). KEI BAZAN MD Sep 30, 2024 07:17
[2024-09-30] MEDS: ENOXAPARIN SOD 120 MG/0.8 ML SYRINGE SC ONE (08:20)
[2024-09-30] MEDS: ASPirin 325 MG TAB PO ONE (08:20)
[2024-09-30] MEDS: FUROSEMIDE 40 MG/4 ML VIAL IV ONE (08:20)
[2024-09-30] MEDS: POTASSIUM EFFERVESENT TAB 25 MEQ PO ONE (08:21)
[2024-09-30] MEDS: levoFLOXacin 500MG 100 ML IV ONE (08:21)
[2024-09-30] MEDS: LABETALOL HCL 20 MG/4 ML VL IV ONE (08:21)
[2024-09-30 08:30] VITALS: RESP 20; TEMP 98; O2SAT 97
[2024-09-30 08:59] VITALS: BP 161/127; PULSE 74
[2024-09-30 09:27] LABS: Urine Bacteria FEW /hpf (None Seen); Urine Blood 1+ /uL (Negative); Urine Clarity Clear (Clear); Urine Color Light-Yellow (Yellow); Urine Mucus FEW (None Seen); Urine Protein, UAD 2+ (Negative); Urine Specific Gravity 1.014 (1.001-1.035); Urine Sperm PRESENT /hpf (None Seen); Urine Squamous Epithelial Cell None Seen /hpf (<5); Urine Urobilinogen Normal (Negative); Urine WBC 3 /hpf (0 - 3)
[2024-09-30 09:32] LABS: Opiate Scree,Urine Neg (NEGATIVE); Phencyclidine Screen, Urine Pos (NEGATIVE)
[2024-09-30 09:33] LABS: Amphetamine Screen, Urine Pos (NEGATIVE); Barbiturate Scree,Urine Neg (NEGATIVE); Benzodiazephine Screen, Urine Neg (NEGATIVE); Cocaine Screen, Urine Neg (NEGATIVE)
[2024-09-30 09:34] LABS: Cannabinoid Screen, Urine Neg (NEGATIVE)
[2024-09-30] MEDS ORDERED: hydrALAZINE HCL 10 MG TAB PO SCH (14:00)
[2024-09-30] MEDS ORDERED: ISOSORBIDE DINITRATE 10 MG TAB PO SCH (14:00)
[2024-09-30] MEDS ORDERED: METOPROLOL TARTRATE 50 MG TAB PO SCH (22:00)
[2024-10-01] MEDS ORDERED: cefTRIAXone 1GM/50ML D5W 50 ML IV SCH (09:00)
[2024-10-01] MEDS ORDERED: ASPirin-EC 81 mg tab PO SCH (10:00)
[2024-10-01] MEDS ORDERED: amLODIPine BESYLATE 5 MG TAB PO SCH (10:00)
[2024-10-01] MEDS ORDERED: AZITHROMYCIN 500MG/ 250ML 250 ML IV SCH (10:00)
--- NOTE | 2024-10-03 15:19 | ECG ---
[facility] Test Date: 2024-09-30 Test Time: 04:25:47 Pat Name: DON BENAVIDES Department: ER Room: Gender: M [employer] Winder: : 1980 Requested By: KEI BAZAN Order Number: [id number] Reading MD: Lamont Spears Measurements Intervals [place] Rate: 78 P: 78 [place]: 199 QRS: 33 QRSD: 105 T: 168 QT: 398 QTc: 454 Interpretive Statements Sinus rhythm Probable LVH with secondary repol abnrm Baseline wander in lead(s) V5 Electronically Signed On 10-04-2024 10:14:51 PST by Lamont Spears Please click the below link to view image of tracing.
== END 2024-09-30 14:07 | disposition left against medical advice (07) ==
LOC: ER 03:30
DX: I11.0 Hypertensive heart disease with heart failure (principal); I50.9 Heart failure, unspecified; I16.0 Hypertensive urgency; J18.9 Pneumonia, unspecified organism; N17.9 Acute kidney failure, unspecified; I24.89 Other forms of acute ischemic heart disease; F15.90 Other stimulant use, unspecified, uncomplicated
CPT/HCPCS: 36415; 71046; 80053; 80307; 81001; 83880; 84484; 85025; 87040; 93005; 96365; 96372; 96375; 99291; 99292; J1650; J1940; J1956